=== PATIENT | female | born 1955 | race Caucasian/White ===

== ENCOUNTER 2025-02-12 09:21 | Inpatient (IN) | payer MEDICARE, SELFPAY ==
--- NOTE | 2025-01-21 16:02 | CM ---
Demographics: Lives alone
Living situation: Lives alone
Support Person Post Operatively: None
History of
VN: No
SNF: No
Outpatient: None
Has patient purchased required equipment: No
PCP: Active
Pharmacy: N/A
Post Operative Discharge Plan: Patient stated that she has no support post operatively and will not be able to get a ride to her outpatient PT appointments. Patient stated that she is requesting SNF. Patient stated her preferences are [facility]
and [facility].
[2025-01-24 14:22] VITALS: BMI 26.0
[2025-01-24 14:35] LABS: Hematocrit 30.9 % (37.0-47.0); Hemoglobin 10.3 g/dL (12.0-16.0); Mean Corp Hgb Conc. 33.3 g/dL (33.0-37.0); Mean Corpuscular Volume 88.3 fL (81.0-99.0); Platelet Count 201 10^3/uL (130-400); Red Cell Dist. Width 14.0 % (11.5-14.5)
[2025-01-24 14:51] VITALS: BMI 26.0
[2025-01-24 15:17] LABS: Reticulocyte Count 1.4 % (0.4-2.8)
[2025-01-24 15:26] LABS: ALT (SGPT) 15 U/L (0-35); AST (SGOT) 23 U/L (14-36); Albumin 4.2 g/dl (3.5-5.0); Alkaline Phosphatase 108 U/L (38-126); Blood Urea Nitrogen 39 mg/dl (7-17); Calcium 9.3 mg/dl (8.4-10.2); Carbon Dioxide 28 mmol/L (22-30); Chloride 104 mmol/L (98-107); Estimated Creatinine Clearance 53 ml/min; Glucose 236 mg/dl (70-99); Iron 65 ug/dl (37-170); Potassium 4.8 mmol/L (3.5-5.1); Sodium 138 mmol/L (135-145); Total Protein 7.2 g/dl (6.3-8.2); eGFR > 60.00
[2025-01-24 15:35] LABS: Total Iron Binding Capacity 291 ug/dl (265-497)
[2025-01-24 16:54] LABS: Ferritin 53.6 ng/ml (11.1-264.0)
[2025-01-24 17:25] LABS: Folate > 20.0 ng/ml (2.76-20); Vitamin B12 572 pg/ml (239-931)
[2025-01-25 08:52] LABS: Glycohemoglobin (HgbA1c) 7.7 % (4.0-5.6)
[2025-02-12] VITALS (12 sets, daily range): BP systolic 90–152; BP diastolic 42–67; PULSE 76; O2SAT 99; BMI 27.4
[2025-02-12 09:48] LABS: Glucose - Point of Care 219 mg/dl (70-99)
[2025-02-12] MEDS: CELEBREX 200 MG PO (09:57)
[2025-02-12] MEDS: NORMOSOL-R/PLASMALYTE-A 1000 IV ×2 (09:57→15:14)
--- NOTE | 2025-02-12 10:10 | W.PN.ORTHO ---
Today's Communication / Plan
-
d/c when stable
Assessment
.
Dressing:
Clean, dry and intact.
Assessment:
Type 2IDDM-insulin pump
Ambulatory dysfunction-Fall precautions
Pain control-Ultram
Plan
.
Surgery / Date: R JORGE Dr. Lee 02/12/25
DVT Prophylaxis: Aspirin
Activity:
Out of bed.
PT/OT
Vital Signs and Labs
.
Vital Signs and Labs:
Lab Results
01/24/25 12:38
01/24/25 12:38
Temp Pulse Resp BP Pulse Ox
97.8 F 81 16 152/67 100
02/12/25 09:49 02/12/25 09:49 02/12/25 09:49 02/12/25 09:49 02/12/25 09:49
[2025-02-12 11:39] LABS: Glucose - Point of Care 146 mg/dl (70-99)
[2025-02-12] MEDS: TYLENOL PO (12:00)
[2025-02-12 12:41] LABS: Glucose - Point of Care 142 mg/dl (70-99)
[2025-02-12 14:10] LABS: Glucose - Point of Care 128 mg/dl (70-99)
--- NOTE | 2025-02-12 15:43 | CM ---
CM reviewed medical records. Plan for discharge to SNF. CM sent referrals via [facility] to [facility] and [facility]. CM will await admission feedback.
--- NOTE | 2025-02-12 16:05 | CM ---
Addendum entered by Vicki Juarez RN 02/14/25 08:42:
Authorization for [facility]
5 Days
NRD 02/18
[id number]
Fax review to [phone]
Addendum entered by Vicki Juarez RN 02/13/25 14:51:
Pending authorization
Reference Number: [id number]
Addendum entered by Vicki Juarez RN 02/13/25 11:15:
Patient is agreeable to [facility]. CM is awaiting final acceptance. Authorization will be pending.
PLAN: [facility] when authorization is approved.
Addendum entered by Vicki Juarez RN 02/13/25 07:49:
CM left message for admission coordinator at [facility].
Original Note:
CM met with patient in room. Patient confirmed choices for SNF. CM updated on placement process.
[2025-02-12] MEDS: TYLENOL 650 MG PO ×3 (16:06→23:14)
--- NOTE | 2025-02-12 16:54 | OR.RPT ---
Operative Report
Operative Report
Orthopaedic Surgery Operative Note
DATE OF OPERATION: 02/12/2025
PREOPERATIVE DIAGNOSES: Osteoarthritis, right hip
POSTOPERATIVE DIAGNOSES: Same
OPERATION PERFORMED: Right total hip arthroplasty.
SURGEON: Eben Lee MD
REMOTE ENCODING OPERATIONS SUPERVISOR: Dann COOPER who assisted with patient positioning and retraction
ANESTHESIA: Spinal
COMPLICATIONS: None.
ESTIMATED BLOOD LOSS: 30 mL.
DRAINS: None
SPECIMEN: None
FINDINGS: Advanced articular cartilage wear on the femoral head and acetabulum.
IMPLANTS:
Biomet G7 Acetabular Shell, cluster hole, size 48
Biomet G7 Highly Crosslinked PE Liner, neutral
Sumit M/L Taper femoral stem, size 4 with reduced neck length and extended offset
Biolox Ceramic Head, size 32mm -3.5
INDICATIONS: The patient presented to my office with debilitating right hip pain due to osteoarthritis. We reviewed the natural history of this problem, as well as the risks, benefits, and alternatives of various treatment options. The patient
exhausted all nonoperative treatment options and wished to proceed with hip replacement surgery. The patient understood the risks which included, but were not limited to, bleeding, infection, failure to relieve pain, more pain than preop, damage to
blood vessels and nerves, need for reoperation, mechanical failure of the implants, wound healing problems, stiffness, instability, blood clot, pulmonary embolism, myocardial infarction, pneumonia, arrhythmia, CVA, and . The patient accepted
these risks and wished to proceed. All questions were answered, and informed consent was obtained.
PROCEDURE IN DETAIL: The patient was identified in the preoperative holding area. The right hip was identified as the operative site. The patient was taken in the operating room and transferred to the operative table. Spinal/General anesthesia was
performed. IV antibiotics and tranexamic acid were administered. The patient was placed in the lateral position with Stulberg hip positioners. Axillary roll was placed. The down leg was well padded. All bony prominences were well padded. The
operative limb was prepped and draped in the usual sterile fashion.
Time out was performed. A posterolateral approach to the hip was used. The skin incision was centered over the greater trochanter. This was taken down sharply through subcutaneous tissues. Meticulous hemostasis was achieved throughout the case with
electrocautery. We split the fascia jeremi in line with skin incision. I split the gluteus yogesh bluntly. We cauterized all crossing vessels as we split it. I palpated the sciatic nerve and made sure it was well posterior in the operative field. It
was protected throughout the case.
I performed a partial bursectomy to identify the short external rotators. The gluteus medius and minimus were identified and retracted anteriorly. I incised the piriformis tendon and conjoint tendon at their insertions. These were tagged for later
repair. I then performed a trapezoidal capsulotomy. The edges were tagged for later repair. I referenced the cut edge of the capsular flap to 2 fixed points on the greater trochanter for assistance with recreation of limb length and offset. I then
dislocated the hip posteriorly. I performed a femoral neck osteotomy approximately 5 mm above the lesser trochanter, as per preoperative templating. The femoral head measured 41 mm in outer diameter. The distance between neck cut and the center of
femoral head was 35mm. I placed a curve hohmann retractor over the anterior lip of the acetabulum between the labrum and the anterior hip capsule. A second retractor was placed inferiorly just distal to the transverse acetabular ligament.
Circumferential view of the acetabulum was achieved. I incised the labrum and pulvinar with electrocautery. I started with a 41 mm reamer and reamed down to the medial wall. I then sequentially reamed up to a 47mm reamer. This gave a nice bed of
bleeding bone with excellent column support anteriorly and posteriorly. I impacted the acetabular shell in approximately 40 degrees of abduction and 20 degrees of anteversion. I matched the anteversion of the transverse acetabular ligament. I also
made sure that the anterior rim of the socket was not proud of the anterior wall to minimize the chance of iliopsoas tendinitis. I confirmed the cup was well-seated. I then impacted a neutral liner and confirmed it was well seated with the locking
mechanism.
On the femoral side, I use a box osteotome to open the proximal starting point. I found the canal with a Charnley awl and a lateralizing reamer. I then used the Sumit M/L taper broaches sequentially to prepare the femoral canal. The femoral canal
was very tight for the smallest broach, size 4. The reamer was used to help open the diaphysis. The size [address] and came to a stop at the desired level and had excellent axial and rotational stability. We trialed with a trial ball
head. The hip was taken through a complete range of motion. It was noted to be stable in extension without impingement. It was stable in the position of sleep and in flexion with internal rotation. The limb length and offset were checked compared to
the capsular flap and was appropriate. The measured length between the neck cut and center of the trial femoral head was 37.5mm.
I removed the trials. I impacted the femoral implant to match the miami version. It had excellent axial and rotational stability. Trial ball head was placed, and I reduced the hip and took the hip through range of motion. There was no impingement
in external rotation and extension. Position of sleep was stable. At 90 degrees of flexion and slight adduction, the hip could be internally rotated to 90 degrees with no subluxation. I palpated the sciatic nerve, which was tension free and
unharmed. Based on our capsular flap measurement, we had restored the offset and leg length. The trial ball head was removed, and the final ball head was impacted onto a clean and dry Liao taper. The hip was reduced.
A dilute betadine soak was performed for approximately 3 minutes, and then the hip was copiously irrigated. I repaired the capsule, piraformis, and conjoint tendon with #2 Ethibond to drill holes in the greater trochanter. Local anesthetic was
injected. The fascia jeremi was closed with #1 PDS in running fashion. The subcutaneous tissues were closed with 2-0 PDS in running fashion. The skin was reapproximated with 3-0 Monocryl subcuticular suture. I placed a Liquiband XL dressing followed
by a Mepilex Ag dressing. The patient awoke from anesthesia without difficulty. Sponge and instrument counts were correct x2 at the end of the case.
I was present and participated in the entire procedure. The patient was sent to the recovery room in stable condition.
Rupert Lee MD
[2025-02-12] MEDS: ASPIRIN 325 MG PO (17:44)
[2025-02-12 17:47] LABS: Glucose - Point of Care 232 mg/dl (70-99)
[2025-02-12] MEDS: TORADOL 15 MG IV (18:31)
[2025-02-12] MEDS: PT'S OWN INSULIN PUMP - HumaLOG 1.5 UNIT SC (18:33)
[2025-02-12] MEDS: ULTRAM 50 MG PO (19:50)
[2025-02-12] MEDS: BACTROBAN 2% OINTMENT 1 APPLIC NASAL (19:50)
[2025-02-12] MEDS: COLACE 100 MG PO (19:50)
[2025-02-12] MEDS: ANCEF 5 IV (19:50)
[2025-02-12] MEDS: SENOKOT 17.2 MG PO (19:50)
[2025-02-12] MEDS: LYRICA 150 MG PO (20:15)
[2025-02-12] MEDS: PT'S OWN INSULIN PUMP - HumaLOG 0.4 UNIT SC (21:21)
[2025-02-12 21:23] LABS: Glucose - Point of Care 162 mg/dl (70-99)
[2025-02-12] MEDS: PEPCID 40 MG PO (21:30)
[2025-02-13] VITALS (8 sets, daily range): BP systolic 124–138; BP diastolic 50–64; PULSE 66; O2SAT 99
[2025-02-13 02:06] LABS: Glucose - Point of Care 53 mg/dl (70-99)
[2025-02-13] MEDS: ANCEF 5 IV (02:11)
[2025-02-13 02:28] LABS: Glucose - Point of Care 66 mg/dl (70-99)
[2025-02-13 02:48] LABS: Glucose - Point of Care 90 mg/dl (70-99)
[2025-02-13] MEDS: TYLENOL 650 MG PO ×5 (04:45→19:30)
[2025-02-13] MEDS: TORADOL 15 MG IV ×2 (05:10→17:35)
[2025-02-13] MEDS: SYNTHROID 75 MCG PO (05:14)
[2025-02-13 08:15] LABS: Glucose - Point of Care 143 mg/dl (70-99)
[2025-02-13] MEDS: PT'S OWN INSULIN PUMP - HumaLOG 0.2 UNIT SC (08:35)
[2025-02-13] MEDS: COLACE 100 MG PO ×2 (09:32→19:30)
[2025-02-13] MEDS: ASPIRIN 325 MG PO (09:32)
[2025-02-13] MEDS: LYRICA 150 MG PO ×2 (09:32→19:30)
[2025-02-13] MEDS: BACTROBAN 2% OINTMENT 1 APPLIC NASAL ×2 (09:32→19:30)
[2025-02-13] MEDS: CELEBREX 200 MG PO (09:32)
[2025-02-13] MEDS: CRESTOR 20 MG PO (09:32)
[2025-02-13] MEDS: SENOKOT 17.2 MG PO ×2 (09:33→19:30)
[2025-02-13] MEDS: ULTRAM 50 MG PO ×2 (09:33→19:30)
[2025-02-13] MEDS: VALTREX 500 MG PO (09:33)
--- NOTE | 2025-02-13 11:06 | W.PN.ORTHO ---
Today's Communication / Plan
-
d/c
Assessment
.
Distal Motor Intact: Yes
Dressing:
Clean, dry and intact.
Assessment:
Type 2IDDM-insulin pump-sugars stable
Ambulatory dysfunction-Fall precautions
Pain control-Ultram--pain controlled
Plan
.
Surgery / Date: R JORGE Lee 02/12/25
DVT Prophylaxis: Aspirin
Activity:
Out of bed.
PT/OT
Discharge Plan: SNF
Subjective
.
.:
Patient resting comfortably.
Vital Signs and Labs
.
Vital Signs and Labs:
Lab Results
01/24/25 12:38
01/24/25 12:38
Temp Pulse Resp BP Pulse Ox
97.6 F 70 16 133/64 96
02/13/25 07:57 02/13/25 09:33 02/13/25 07:57 02/13/25 09:33 02/13/25 07:57
Non-invasive Hgb result: 10.2
Physical Exam
-
HEENT: No pallor, cyanosis, or jaundice. Throat clear.
NECK: Supple. No JVD.
RESPIRATORY: Lungs clear to auscultation.
CVS: S1, S2 normal. RRR.� No murmur, rub or gallop.
ABDOMEN: Soft, non-tender. No distension. BS+/normal.
EXTREMITIES: strength equal, no calf pain with palpation
REAL ESTATE ASSOCIATE ATTORNEY: AOx3. No focal deficits. lip cutter grossly intact
[2025-02-13 12:19] LABS: Glucose - Point of Care 135 mg/dl (70-99)
[2025-02-13] MEDS: PT'S OWN INSULIN PUMP - HumaLOG 0.1 UNIT SC (12:25)
[2025-02-13 15:16] LABS: Glucose - Point of Care 155 mg/dl (70-99)
[2025-02-13] MEDS: MAALOX 30 ML PO (16:04)
--- NOTE | 2025-02-13 16:06 | PTCARENOTE ---
Addendum entered by Atiya Luz RN 02/13/25 18:06:
pt reports adequate relief from Maalox. feels much improved and ordering dinner at this time.
Original Note:
pt out of bed sitting in chair, @1510 c/o feeling slight nausea and feeling off. VSS and accu check completed. pt verbalized some frustration with not going to SNF today. emotional support provided. pt assisted back to bed. @1600, pt stated she
felt lunch wasn't agreeing with her and stomach was feeling some nausea but mostly indigestion. Maalox provided per AUG @ 1604. care ongoing.
[2025-02-13] MEDS: FLUSH (NSS) 2 FLUSH IV (17:37)
[2025-02-13 17:47] LABS: Glucose - Point of Care 100 mg/dl (70-99)
[2025-02-13] MEDS: PT'S OWN INSULIN PUMP - HumaLOG SC (17:59)
[2025-02-13 21:34] LABS: Glucose - Point of Care 175 mg/dl (70-99)
[2025-02-13] MEDS: PT'S OWN INSULIN PUMP - HumaLOG 0.4 UNIT SC (22:30)
[2025-02-13] MEDS: PEPCID 40 MG PO (22:30)
[2025-02-14] MEDS: TYLENOL 650 MG PO ×3 (00:30→09:52)
[2025-02-14 03:06] VITALS: BP 133/57
[2025-02-14] MEDS: SYNTHROID 75 MCG PO (05:22)
[2025-02-14] MEDS: TORADOL 15 MG IV (05:24)
[2025-02-14 07:35] VITALS: BP 130/60
[2025-02-14 08:34] LABS: Glucose - Point of Care 259 mg/dl (70-99)
[2025-02-14] MEDS: PT'S OWN INSULIN PUMP - HumaLOG 1.5 UNIT SC (09:00)
--- NOTE | 2025-02-14 09:45 | PTCARENOTE ---
Patient OOB with assist x1 to bathroom. Patient states, 'I am not feeling right. I feel shaky and nauseous. I think it is all the medications that I have been taking.' Patient requesting Maalox. Med review completed with patient. Patient is refusing
Ultram and Celebrex at this time. Patient has no c/o pain at present and is agreeable to taking Tylenol and Lyrica.
[2025-02-14] MEDS: MAALOX 30 ML PO (09:51)
[2025-02-14] MEDS: ULTRAM PO (09:53)
[2025-02-14] MEDS: SENOKOT 17.2 MG PO (09:53)
[2025-02-14] MEDS: ASPIRIN 325 MG PO (09:53)
[2025-02-14] MEDS: COLACE 100 MG PO (09:53)
[2025-02-14] MEDS: CRESTOR 20 MG PO (10:02)
[2025-02-14] MEDS: LYRICA 150 MG PO (10:02)
[2025-02-14] MEDS: VALTREX 500 MG PO (10:02)
[2025-02-14] MEDS: CELEBREX PO (10:03)
--- NOTE | 2025-02-14 10:16 | CM ---
Patient is medically ready for discharge. Plan to have [facility] provide transportation as per admission director. Patient will be picked up at 11:30. Cm updated RN and patient .
[facility]
Report
[phone]
[2025-02-14] MEDS: TYLENOL PO (11:47)
[2025-02-14] MEDS: PT'S OWN INSULIN PUMP - HumaLOG SC (11:48)
[2025-02-14 12:43] VITALS: BP 148/55
[2025-02-14 13:46] LABS: Glucose - Point of Care 200 mg/dl (70-99)
== END 2025-02-14 14:13 | DRG 470 ==
LOC: 2 SOUTH 09:21
PROVIDERS: ADMITTING PHYSICIAN Orthopaedic Surgery; PRIMARYCARE PHYSICIAN Registered Nurse; REFERRING PHYSICIAN Internal Medicine Cardiovascular Disease
PROC: 0SR904Z Replacement of Right Hip Joint with Ceramic on Polyethylene Synthetic Substitute, Open Approach (ICD-10-PCS; 2025-02-12)
DX: M16.11 Unilateral primary osteoarthritis, right hip (principal); I10 Essential (primary) hypertension; E78.00 Pure hypercholesterolemia, unspecified; I25.10 Atherosclerotic heart disease of native coronary artery without angina pectoris; E10.319 Type 1 diabetes mellitus with unspecified diabetic retinopathy without macular edema; E10.51 Type 1 diabetes mellitus with diabetic peripheral angiopathy without gangrene; I27.20 Pulmonary hypertension, unspecified; E10.40 Type 1 diabetes mellitus with diabetic neuropathy, unspecified; E04.2 Nontoxic multinodular goiter; E89.0 Postprocedural hypothyroidism; L30.9 Dermatitis, unspecified; D50.9 Iron deficiency anemia, unspecified; F43.10 Post-traumatic stress disorder, unspecified; L80 Vitiligo; F41.9 Anxiety disorder, unspecified; Z60.2 Problems related to living alone; Z96.653 Presence of artificial knee joint, bilateral; Z96.41 Presence of insulin pump (external) (internal); Z86.0100 Personal history of colon polyps, unspecified; Z87.891 Personal history of nicotine dependence; Z79.82 Long term (current) use of aspirin; Z79.890 Hormone replacement therapy; Z79.4 Long term (current) use of insulin; Z98.42 Cataract extraction status, left eye; Z98.41 Cataract extraction status, right eye
CPT/HCPCS: 36415; 73502; 80053; 82607; 82728; 82746; 82962; 83036; 83540; 83550; 85027; 85045; 86850; 86900; 86901; 87070; 97110; 97116; 97162; 97167; 97530; 97535; C1776

== ENCOUNTER 2025-02-14 23:34 | Inpatient (IN) | payer MEDICARE, SELFPAY ==
[2025-02-14 19:43] VITALS: BP 137/52
[2025-02-14 19:46] VITALS: BP 137/52
[2025-02-14 19:50] VITALS: BMI 28.7
[2025-02-14 20:03] VITALS: BP 143/54
[2025-02-14 21:00] LABS: Hematocrit 30.2 % (37.0-47.0); Hemoglobin 10.3 g/dL (12.0-16.0); Mean Corp Hgb Conc. 34.1 g/dL (33.0-37.0); Mean Corpuscular Volume 86.8 fL (81.0-99.0); Nucleated Red Blood Cells % 0 %; Platelet Count 189 10^3/uL (130-400); Red Cell Dist. Width 14.0 % (11.5-14.5)
[2025-02-14 21:09] LABS: INR 0.86; PT 12.0 Sec (11.4-14.6)
[2025-02-14 21:10] LABS: APTT 22.1 Sec (23.4-35.0)
[2025-02-14] MEDS: TORADOL 15 MG IV (21:20)
[2025-02-14 21:25] LABS: Blood Urea Nitrogen 26 mg/dl (7-17); Calcium 9.1 mg/dl (8.4-10.2); Carbon Dioxide 26 mmol/L (22-30); Chloride 104 mmol/L (98-107); Estimated Creatinine Clearance 71 ml/min; Glucose 96 mg/dl (70-99); Sodium 135 mmol/L (135-145); eGFR > 60.00
--- NOTE | 2025-02-14 22:05 | ED.GENMED ---
History of Present Illness
General
Chief Complaint: Fall
Source: patient
Exam Limitations: none
Time Seen by Provider: 02/14/25 20:29
History of Present Illness
History of Present Illness:
See MDM
Past History
Past History
ED Past Medical History: HTN
ED Past Surgical History: Orthopedic
Social History
Tobacco: Non-smoker
Alcohol: None
Phy Exam
Physical Exam
Physical Exam:
See MDM
Course
Orders/Labs/Results
Orders:
Orders
02/14/25 19:59
CR Hip - RT w/wo Pel 2-3 Vw* Urgent
Comment:
Reason For Exam: fall
Include a pelvis x-ray?: Yes
02/14/25 20:40
CT Head W/o Iv Contrast Urgent
Comment:
Reason For Exam: fall, head injury
02/14/25 20:42
Ketorolac [Toradol] 15 mg IV NOW STA
02/14/25 20:50
Femur, Right 2 View [CR Femur - Right Min 2 Vw] Urgent
Comment:
Reason For Exam: fall, thigh pain
02/14/25 20:51
Basic Metabolic Panel Urgent
Complete Blood Count/With Diff Urgent
PTT Urgent
Prothrombin Time Urgent
02/14/25 20:53
CT Pelvis W/o Iv Contrast Urgent
Comment:
Reason For Exam: fall, R hip pain
02/14/25 21:05
Consult Orthopedic [ORTHOPEDIC CONSULT] Routine
Consulting Provider: Eben Lee
Was physician already notified: Yes
02/14/25 21:37
Type+Screen Urgent
Ydfqi-Jwgq-Ghtwvgv Urgent
Potassium Urgent
Abnormal Lab Results
02/14/25
20:51
RBC 3.48 L 10^6/uL
(4.20-5.40)
Hgb 10.3 L g/dL
(12.0-16.0)
Hct 30.2 L %
(37.0-47.0)
Absolute Lymphs (auto) 0.9 L 10^3/uL
(1.2-3.4)
Immature Gran % 0.6 H %
(0-0.5)
Lymphocytes % 16.9 L %
(20.5-51.1)
Monocytes % 9.8 H %
(1.7-9.3)
APTT 22.1 L Sec
(23.4-35.0)
BUN 26 H mg/dl
(7-17)
02/14/25 20:51
Vital Signs
Initial and Last Documented VS:
Initial Vital Signs
Temp Pulse Resp BP Pulse Ox
98.0 F 94 14 137/52 98
02/14/25 19:43 02/14/25 19:43 02/14/25 19:43 02/14/25 19:43 02/14/25 19:43
Last Documented Vital Signs
Temp Pulse Resp BP Pulse Ox
98.0 F 92 10 143/54 100
02/14/25 19:43 02/14/25 21:45 02/14/25 21:45 02/14/25 20:03 02/14/25 21:30
MDM/Problems Addressed
Differential Diagnosis Includes:
Note:
CHIEF COMPLAINT(S)
Fall with suspected hip injury.
HISTORY OF PRESENT ILLNESS
The patient is a 69-year-old female with a history of hip surgery, presenting after a fall. She reports the fall occurred while transferring from a chair at a rehabilitation facility, which she had been at for approximately an hour. The patient
describes the fall happened as she attempted to retrieve a folder from a bag on the chair. During this maneuver, she lost balance and fell. The concern is primarily around potential injury to the prosthetic hip. Upon examination, there is a
suspicion of a fracture around the prosthetic hip. The patient denies neck pain and does not currently require pain medication as per her statement, although Toradol was offered for relief. The patient also expressed frustration over the setback in
her rehabilitation progress.
PAST MEDICAL AND SURIGICAL HISTORY
History of recent hip surgery.
PHYSICAL EXAM
General: Alert, no acute distress.
Skin: Warm, dry.
Head: Normocephalic, atraumatic
Neck: Appears supple, trachea midline.
Eyes, Ears, Nose, Mouth, and Throat: Oral mucosa moist.
Cardiovascular: No signs of cyanosis
Respiratory: Respirations are non-labored.
Abdomen: Non-distended
Musculoskeletal: Mildly shortened and externally rotated right leg. Distal extremity otherwise neurovascular intact. Pain localized to right hip palpation. Pelvis stable compression
Neurological: No focal neurological deficit observed.
Psychiatric: Cooperative, appropriate mood and affect.
PLAN
1. Consult orthopedic team regarding the management of suspected fracture around the prosthetic hip.
2. Obtain a CT scan of the head to rule out intracranial bleeding.
3. Administer IV Toradol for pain management as needed.
DIFFERENTIAL DIAGNOSIS
The Differential Diagnosis includes, in no particular order and is not limited to:
1. Periprosthetic hip fracture
2. Hip dislocation
3. Soft tissue injury
4. Intracranial hemorrhage
5. Hematoma formation
6. New prosthetic wear or failure
7. Simple fall with no fracture
8. Bruised soft tissue around the hip
9. Muscular strain
10. Stroke or transient ischemic attack (related to sudden loss of balance)
Disposition:
SUMMARY OF ENCOUNTER
The patient, a 69-year-old female with a history of hip surgery, presented after experiencing a fall with suspected injury around her prosthetic hip. An x-ray indicated a concern for a periprosthetic fracture. The patients pain is currently
well-controlled. After an initial evaluation, I discussed the case with the orthopedic team, who recommended planning to take the patient to the operating room the next day for further management.
DISPOSITION
Admit
MANAGEMENT OF THE PATIENTS CARE WAS DISCUSSED WITH
The orthopedic team was consulted regarding the management of the suspected periprosthetic fracture and has planned for surgery. Additionally, the hospitalist team was informed to keep the patient NPO (nothing by mouth) after midnight in preparation
for surgery.
PLAN
Admit the patient overnight for further orthopedic evaluation and surgery planned for tomorrow. Ensure the patient remains NPO after midnight.
INDEPENDENT REVIEW OF LABS AND INTERPRETATION OF TESTS
My independent interpretation of the x-ray indicates a concern for periprosthetic fracture.
MEDICATION RECONCILIATION
Pain management is effectively controlled with current medications, specifics not provided.
MEDICAL DECISION MAKING
- Number and Complexity of Problems Addressed: Chronic conditions affecting care include recent hip surgery. Differential diagnosis includes periprosthetic hip fracture, hip dislocation, soft tissue injury, intracranial hemorrhage, hematoma
formation, new prosthetic wear or failure, simple fall with no fracture, bruised soft tissue around the hip, muscular strain, stroke or transient ischemic attack.
- Data:
- Category 1: My independent x-ray interpretation indicates a concern for a periprosthetic fracture.
- Category 3: Discussion of management with the orthopedic team and the hospitalist regarding surgical planning and preoperative preparation.
DIAGNOSIS
- Suspected periprosthetic fracture (M97.02XA)
*Pulse Oximetry
SaO2: 100
Oxygen Mode of Delivery: Room air
Patient hypoxic: no
*Critical Care Note
Total Time (30-74mins, 75-104mins- exclusive of procedures): Not Applicable
ED Attending Note
-
Portions of this chart may have been created with voice recognition software.� Occasional wrong word or��sound alike� substitutions may have occurred due to the inherent limitations of voice recognition software.
Discharge Plan
Departure
Patient Disposition: Admit
Date of Disposition: 02/14/25
Time of Disposition: 22:07
Admit to: Med/Surg
Presentation/result/management discussed w/ accepting MD/DO: Hospitalist
Discharge Problem:
Scarlett-prosthetic femoral shaft fracture
Prescriptions:
No Action
amlodipine 5 mg Tablet
5 mg PO DAILY
valacyclovir 500 mg Tablet
500 mg PO DAILY
levothyroxine 75 mcg Tablet
75 mcg PO MOTUWETHFR
ascorbic acid (vitamin C) [Vitamin C] 500 mg Tablet
500 mg PO DAILY
insulin lispro 100 unit/mL Solution
0 unit SC Q1H
Patient Comments:
varying basal rate , continuous pump
Rx Instructions:
self admin'd 1.2 units at 0947
coenzyme Q10 [CoQ-10] 100 mg Capsule
100 mg PO DAILY
rosuvastatin 20 mg Tablet
20 mg PO DAILY
pregabalin 100 mg Capsule
100 mg PO BID
hydrochlorothiazide 12.5 mg Tablet
12.5 mg PO DAILY
cholecalciferol (vitamin D3) [Vitamin D3] 125 mcg (5,000 unit) Tablet
125 mcg PO SA
magnesium citrate 34 mg Tablet,Chewable
70 mg PO DAILY
Beet Root Gummy
500 mg PO DAILY
Nutrafol Womens
1 dose PO DAILY
ferrous gluconate 324 mg (38 mg iron) Tablet
324 mg PO DAILY
mupirocin 2 % ointment
1 applic intranasal BID Qty: 1 0RF
Patient Comments:
BID times 3 days, last dose 8/20 am
aspirin 325 mg tablet
325 mg PO DAILY Qty: 1 0RF
Rx Instructions:
Take with food
cefadroxil 500 mg capsule
500 mg PO BID Qty: 14 0RF
Rx Instructions:
*Take w/ food
*Take w/ probiotic
*POST-OP USE
docusate sodium [Colace] 100 mg capsule
100 mg PO BID Qty: 1 0RF
famotidine 20 mg tablet
20 mg PO HS Qty: 30 0RF
Rx Instructions:
post-op
Saccharomyces boulardii [Florastor] 250 mg capsule
250 mg PO BID Qty: 1 0RF
tramadol 50 mg tablet
50 mg PO Q6H PRN (Reason: 1 tab moderate pain, 2 if severe) Qty: 30 0RF
Rx Instructions:
ongoing therapy
ondansetron [ondansetron] 4 mg tablet,disintegrating
4 mg PO Q6H PRN (Reason: n/v) Qty: 20 0RF
Rx Instructions:
take 1/2h b/f pain med if recurrent nausea
allow to dissolve in mouth w/o water
magnesium hydroxide [Milk of Magnesia] 400 mg/5 mL suspension
30 ml PO HS PRN (Reason: constipation) Qty: 1 0RF
Rx Instructions:
CONTINUE colace W/senokot-if no bowel movement 1 day POST-OP -add milk of mag
sennosides [Senokot] 8.6 mg tablet
17.2 mg PO BID Qty: 2 0RF
acetaminophen 500 mg Tablet
1,000 mg PO QID Qty: 0 0RF
Referrals:
Shalini Pizarro CRNP [Family Provider, Family Practice]
Interventions
Interventions:
*Risk Screen - Suicide Last Done: 02/14/25 19:50
*General Assessment Last Done: 02/14/25 19:50
*Neglect/Abuse Screening Last Done: 02/14/25 19:50
*ED- Fall Risk Assessment Last Done: 02/14/25 19:50
*ED COVID-19 Vaccine History Last Done: 02/14/25 19:50
ED-Musculoskeletal Assessment Last Done: 02/14/25 19:55
ED- Neurological Assessment Last Done: 02/14/25 19:55
ED-Skin Assessment Last Done: 02/14/25 19:55
Discharge Date and Time
Print Language: MAORI
--- NOTE | 2025-02-14 22:08 | HPS.HSE ---
Family Physician
-
Family Physician: Shalini Pizarro
Chief Complaint
-
right hip pain
History of Present Illness
Patient is a 69-year-old female with past medical history significant for hypertension, hypercholesterolemia, DM - I, retinopathy, neuropathy, Pedro's disease, anemia and spinal stenosis who presented to [facility] for evaluation of right hip pain.
Patient with right hip replacement and discharged earlier today for rehab. She was at rehab for short period of time when he attempted to get up, walk with walker and reach for bag. When attempting to lift bag patient reports loosing her balance
with only one hand on the walker and falling. She reports hitting head on fall. Denies any other concerns at thist time.
Medical History
Past Medical History
Past Medical History: Reports Other
Additional Past Medical History:
hypertension
hypercholesterolemia
CAD
DM - I
retinopathy
neuropathy
Pedro's disease
anemia
spinal stenosis
herpes simplex virus
Past Surgical History: Reports Other
Additional Past Surgical History:
right total hip replacement
right TKA
left TKA
b/l cataracts
b/l carpal tunnel release
partial thyroidectomy
tenosynovitis
bilateral breast nodule excision
Social History
Tobacco: Non-smoker
Living: Alone
Family History
Family History: Not pertinent
Allergies / Home Medications
Allergies reflects when Allergies were last updated in [employer].
Home Medications with original date entered in [employer]
Allergy/Medication List:
Allergies
Allergy/AdvReac Type Severity Reaction Status Date / Time
codeine Allergy dizziness Verified 02/12/25 09:38
diphenhydramine (From Allergy Hives Verified 02/12/25 09:38
Benadryl)
gabapentin Allergy Itching Verified 02/12/25 09:38
insulin isophane (NPH) (From Allergy welts legs Verified 02/12/25 09:38
Novolin 70/30 U-100 Insulin)
insulin regular (From Allergy welts legs Verified 02/12/25 09:38
Novolin 70/30 U-100 Insulin)
isosorbide Allergy dizziness Verified 02/12/25 09:38
meloxicam Allergy diarrhea Verified 02/12/25 09:38
amlodipine AdvReac leg Verified 02/12/25 09:38
swelling
Home Medications
Beet Root Gummy 500 mg PO DAILY 01/23/25
Held on 02/12/25. Instructions: Resume on 02/20/25.
Nutrafol Womens 1 dose PO DAILY 01/23/25
Held on 02/12/25. Instructions: Resume on 02/20/25.
amlodipine 5 mg tablet 5 mg PO DAILY 01/23/25
ascorbic acid (vitamin C) 500 mg tablet (Vitamin C) 500 mg PO DAILY 01/23/25
cholecalciferol (vitamin D3) 125 mcg (5,000 unit) tablet (Vitamin D3) 125 mcg PO SA 01/23/25
coenzyme Q10 100 mg capsule (CoQ-10) 100 mg PO DAILY 01/23/25
Held on 02/12/25. Instructions: Resume on 02/20/25.
ferrous gluconate 324 mg (38 mg iron) tablet 324 mg PO DAILY 01/23/25
hydrochlorothiazide 12.5 mg tablet 12.5 mg PO DAILY 01/23/25
insulin lispro 100 unit/mL subcutaneous solution 0 unit SC Q1H 01/23/25
levothyroxine 75 mcg tablet 75 mcg PO MOTUWETHFR 01/23/25
magnesium citrate 34 mg chewable tablet 70 mg PO DAILY 01/23/25
pregabalin 100 mg capsule 100 mg PO BID 01/23/25
rosuvastatin 20 mg tablet 20 mg PO DAILY 01/23/25
valacyclovir 500 mg tablet 500 mg PO DAILY 01/23/25
mupirocin 2 % topical ointment 1 applic intranasal BID #1 tube 01/24/25
Saccharomyces boulardii 250 mg capsule (Florastor) 250 mg PO BID #1 cap 02/12/25
cefadroxil 500 mg capsule 500 mg PO BID infection prevention #14 caps 02/12/25
docusate sodium 100 mg capsule (Colace) 100 mg PO BID stool softner #1 cap 02/12/25
famotidine 20 mg tablet 20 mg PO HS GI prophylaxis #30 tabs 02/12/25
magnesium hydroxide 400 mg/5 mL oral suspension (Milk of Magnesia) 30 ml PO HS PRN constipation #1 mL 02/12/25
ondansetron 4 mg disintegrating tablet 4 mg PO Q6H PRN n/v #20 tabs 02/12/25
sennosides 8.6 mg tablet (Senokot) 17.2 mg (2 x 8.6 mg) PO BID laxative #2 tabs 02/12/25
tramadol 50 mg tablet 50 mg PO Q6H PRN 1 tab moderate pain, 2 if severe #30 tabs 02/12/25
Review of Systems
-
History Source: Patient
Constitutional: Reports No Symptoms
EENT: Reports No Symptoms
Respiratory: Reports No Symptoms
Cardiac: Reports No Symptoms
Abdomen/GI: Reports No Symptoms
: Reports No Symptoms
Musculoskeletal: Reports Joint Pain (right hip discomfort )
Skin: Reports No Symptoms
Neurological: Reports No Symptoms
Endocrine: Reports No Symptoms
Hematologic/Lymphatic: Reports No Symptoms
Psych: Reports No Symptoms
Physical Exam
Vital Signs
Vital Signs
Temp Pulse Resp BP Pulse Ox
98.0 F 92 10 143/54 100
02/14/25 19:43 02/14/25 21:45 02/14/25 21:45 02/14/25 20:03 02/14/25 22:08
Physical Exam
General: Well Developed, Well Nourished, No Apparent Distress and Conversant
HEENT: NormoCephalic, Moist mucous membranes and Atraumatic
Respiratory: Clear
Cardiac: S1/S2 and Regular Rhythm; No Murmur, Rub or Gallop
Breast: Deferred by me
GI: Soft, Non Tender, Non Distended and Normal Bowel Sounds; No Organomegaly
Rectal: Deferred by Provider
Genito-urinary: Deferred by me
Musculoskeletal: No Clubbing, No Cyanosis and Other (externally rotated right leg)
Skin: Warm and IV/Catheter Site
Neuro: Awake, AO x 3 and Nonfocal/grossly intact
Hematologic/Lymphatic: No Lymphadenopathy
Psych: Calm
Laboratory Results
-
02/14/25 20:51
Laboratory Results
PT 12.0 Sec (11.4-14.6) 02/14/25 20:51
INR 0.86 02/14/25 20:51
APTT 22.1 Sec (23.4-35.0) L 02/14/25 20:51
Total Bilirubin Cancelled 02/14/25 20:51
AST Cancelled 02/14/25 20:51
ALT Cancelled 02/14/25 20:51
Alkaline Phosphatase Cancelled 02/14/25 20:51
Data Reviewed
-
CT Scan: Report Reviewed by me
Lab Data: Labs Reviewed by me
Impression/Plan
-
IMPRESSION/PLAN:
#shazia-prosthetic femoral shaft fracture
Pelvis CT: Right total hip arthroplasty with an oblique periprosthetic fracture through the proximal femur with anteromedial displacement of the fracture fragment. There is associated soft tissue swelling and
edema in the lateral soft tissues.
Right Femur x-ray: Redemonstration of the periprosthetic possible femur fracture. There is no evidence of distal femoral fracture.
Head TC: No acute intracranial abnormality noted.
Right femur CT: Unchanged alignment of the right total hip arthroplasty with a minimally displaced periprosthetic fracture through the medial proximal femur.
- Admit to med/surg
- Consult Ortho
- pain regimen
- plan for OR Monday
- continue cefadroxil
#hypertension
- continue amlodipine and hydrochlorothiazide
#hypercholesterolemia
- continue rosuvastatin
#DM - I
- continue own insulin pump
#herpes simplex virus
- continue valacyclovir
#Pedro's disease
s/p partial thyroidectomy
- continue levothyroxine
#neuropathy
- continue pregabalin
#retinopathy
#anemia
#spinal stenosis
Code status: full code
DVT prophylaxis: heparin sq
[2025-02-14 22:09] VITALS: BP 150/62
[2025-02-14 22:15] LABS: Albumin 3.7 g/dl (3.5-5.0); Alkaline Phosphatase 75 U/L (38-126); Total Protein 6.5 g/dl (6.3-8.2)
[2025-02-14 22:16] LABS: ALT (SGPT) 13 U/L (0-35); AST (SGOT) 47 U/L (14-36)
[2025-02-14 22:17] LABS: Potassium 4.4 mmol/L (3.5-5.1)
--- NOTE | 2025-02-14 22:57 | W.PN.UPDATE ---
Update Note
Progress Note Update
This is an addendum to H&P written by Ernestina Najera on 02/14/2025. �Patient seen and examined independently with [employer].
69-year-old female past medical history of osteoarthritis post right total hip arthroplasty, type 1 diabetes with insulin pump, diabetic neuropathy/retinopathy, hypertension, hypercholesteremia, CAD, peripheral vascular disease, mild to moderate
pulmonary hypertension, spinal stenosis, lichenoid dermatitis, iron deficiency anemia, vitiligo, PTSD, anxiety, herpes simplex, presenting with fall.
She recently had total right hip arthroplasty on 02/12 and now fell again.
Femur x-ray shows redemonstration of the periprosthetic possible femur fracture. �Pelvic CT shows right total hip arthroplasty with an oblique periprosthetic fracture through the proximal femur with anterior medial displacement of the fracture
fragment with associated soft tissue swelling and edema in the lateral soft tissues. �CT head shows no acute abnormality.
Patient with periprosthetic fracture on the same side of recent right hip arthroplasty performed on 02/12. �Pain control with tylenol, toradol and dilaudid PRN. �Orthopedics states that implant will not be ready until tomorrow afternoon and therefore
surgery planned for Monday. �Patient with low risk of postcardiac complications after surgery.
Continue insulin pump which can be discontinued at time of surgery and be restarted afterwards.�
[2025-02-14 23:00] VITALS: BP 159/55
[2025-02-14 23:41] LABS: Glucose - Point of Care 129 mg/dl (70-99)
[2025-02-15 00:35] VITALS: BP 145/70; BMI 29.3
[2025-02-15] MEDS: HEPARIN 5000 UNITS SC ×4 (01:00→23:03)
[2025-02-15] MEDS: TORADOL 10 MG IV ×2 (06:34→17:28)
[2025-02-15 07:30] VITALS: BP 166/69
[2025-02-15 08:17] LABS: Glucose - Point of Care 184 mg/dl (70-99)
[2025-02-15] MEDS: PT'S OWN INSULIN PUMP - HumaLOG 0.7 UNIT SC (08:51)
[2025-02-15] MEDS: VALTREX 500 MG PO (08:52)
[2025-02-15] MEDS: LYRICA 100 MG PO ×2 (08:53→21:37)
[2025-02-15] MEDS: CRESTOR 20 MG PO (08:53)
[2025-02-15] MEDS: ORETIC 12.5 MG PO (08:53)
[2025-02-15] MEDS: NORVASC 5 MG PO (08:54)
[2025-02-15] MEDS: ASPIR LOW (ENTERIC COATED) 81 MG PO (08:55)
--- NOTE | 2025-02-15 10:18 | W.PN.HOSP.TC ---
Today's Communication/Plan
-
continue with ISS
EKG in AM for pre-op
Assessment / Plan
Assessment / Plan
Physical Exam
General: Well Developed, Well Nourished, No Apparent Distress and Conversant
HEENT: Normocephalic, Moist mucous membranes and Atraumatic
Respiratory: Clear
Cardiac: S1/S2 and Regular Rhythm; No Murmur, Rub or Gallop
Breast: Deferred by me
GI: Soft, Non Tender, Non Distended and Normal Bowel Sounds;
Genito-urinary: No [place]
Musculoskeletal: No Clubbing, No Cyanosis and Other (externally rotated right leg)
Skin: Warm and IV/Catheter Site
Neuro: Awake, AO x 3 and Nonfocal/grossly intact
Psych: Calm
A/p:
#shazia-prosthetic femoral shaft fracture
Pelvis CT: Right total hip arthroplasty with an oblique periprosthetic fracture through the proximal femur with anteromedial displacement of the fracture fragment. There is associated soft tissue swelling and
edema in the lateral soft tissues.
Right Femur x-ray: Redemonstration of the periprosthetic possible femur fracture. There is no evidence of distal femoral fracture.
Head TC: No acute intracranial abnormality noted.
Right femur CT: Unchanged alignment of the right total hip arthroplasty with a minimally displaced periprosthetic fracture through the medial proximal femur.
- Admit to med/surg
- Consulted Ortho
- pain regimen
- plan for OR Monday
- continue cefadroxil
# Pre op evaluation
Patient denies chest pain or shortness of breath. Denies anginal symptoms. Had recent surgery without complications. No prohibitive factors for surgery, will get preop EKG.
#hypertension
- continue amlodipine and hydrochlorothiazide
#hypercholesterolemia
- continue rosuvastatin
#DM - I
She has her own insulin pump and uses it. I d/w pt, will do ISS but she should turn off the pump on day of surgery and we can continue with our sliding scale
#herpes simplex virus
- continue valacyclovir
#Pedro's disease
s/p partial thyroidectomy
- continue levothyroxine
#neuropathy
- continue pregabalin
#retinopathy
#anemia
#spinal stenosis
Code status: full code
DVT prophylaxis: heparin sq
Total time spent to see the patient, examine the patient, review data and lab results, discuss treatment plan with patient, nursing staff around 55 minutes
Anticipated Discharge: > 48 hours
Subjective/Interval History
-
Date of Service: February 15, 2025
No chest pain
No sob
No fever or chills
Objective Data
-
Vital Signs:
Vital Signs
Temp Pulse Resp BP Pulse Ox
98.0 F 91 18 166/69 95
02/15/25 07:30 02/15/25 08:54 02/15/25 07:30 02/15/25 08:54 02/15/25 07:30
I&O
02/14/25 02/15/25 02/16/25
06:59 06:59 06:59
Intake Total 120 / 120
Output Total 1200 / 1200
Balance -1080 / -1080
--- NOTE | 2025-02-15 10:20 | CON.ORTHO ---
Addendum entered and electronically signed by Eben Lee MD 02/15/25 16:12:
I evaluated the patient at bedside and reviewed the imaging. Agree with above note. 69F who sustained a trip and fall at [facility] one day ago. She was reaching to grab her purse and lost her balance and fell onto the right side. She was brought to the ED
and noted to have displaced proximal femur fracture with subsidence of femoral stem. I discussed treatment options with the patient and her sister at bedside. We discussed likelihood of nonunion/malunion and risk of shortened unstable hip with
nonoperative treatment. We discussed surgical treatment with proximal femur ORIF and revision of the femoral stem. We discussed touch down weight bearing 4-6 weeks post operatively in recovery. Shared decision was to proceed with surgery. Plan will
be for tomorrow AM due to awaiting appropriate implants. NPO at midnight.
Rupert Lee MD
Original Note:
Consultation
-
Date/Time Consultation Requested: 02/14/2025; time unknown
Date/Time Consultation Performed: 02/15/2025; 0730
Requesting Provider: unknown
Performing Provider: Sophie Alaniz PA-C / Dr. Sandeep Marquez
Reason for Consultation: Right periprosthetic hip fracture
Consultation - Orthopedics
History
Ms. Valentine is a 69 year old female with PMH of hypertension, hypercholesterolemia, DM - I, retinopathy, neuropathy, Pedro's disease, anemia and spinal stenosis. She recently underwent a right total hip arthroplasty under the direction of
Rosa, and was discharged to [facility] yesterday. She reports she was sitting in a chair at the rehab when she attempted to stand and grab her purse. It was heavier than she expected which caused her to call. She was unable to get up off the floor. She
was brought to ED via EMS where x-rays revealed a periprosthetic hip fracture. She is resting comfortably in bed this morning, and reports her pain is well controlled with her current pain management regimen. She denies pain elsewhere.
Allergies / Home Medications
Allergy/AdvReac Type Severity Reaction Status Date / Time
codeine Allergy dizziness Verified 02/12/25 09:38
diphenhydramine (From Allergy Hives Verified 02/12/25 09:38
Benadryl)
gabapentin Allergy Itching Verified 02/12/25 09:38
insulin isophane (NPH) (From Allergy welts legs Verified 02/12/25 09:38
Novolin 70/30 U-100 Insulin)
insulin regular (From Allergy welts legs Verified 02/12/25 09:38
Novolin 70/30 U-100 Insulin)
isosorbide Allergy dizziness Verified 02/12/25 09:38
meloxicam Allergy diarrhea Verified 02/12/25 09:38
amlodipine AdvReac leg Verified 02/12/25 09:38
swelling
�Medication �Instructions �Recorded
Beet Root Gummy 500 mg PO DAILY 01/23/25
Held on 02/12/25.
Instructions: Resume on
02/20/25.
Nutrafol Womens 1 dose PO DAILY 01/23/25
Held on 02/12/25.
Instructions: Resume on
02/20/25.
amlodipine 5 mg tablet 5 mg PO DAILY 01/23/25
ascorbic acid (vitamin C) 500 mg 500 mg PO DAILY 01/23/25
tablet (Vitamin C)
cholecalciferol (vitamin D3) 125 125 mcg PO SA 01/23/25
mcg (5,000 unit) tablet (Vitamin
D3)
coenzyme Q10 100 mg capsule 100 mg PO DAILY 01/23/25
(CoQ-10)
Held on 02/12/25.
Instructions: Resume on
02/20/25.
ferrous gluconate 324 mg (38 mg 324 mg PO DAILY 01/23/25
iron) tablet
hydrochlorothiazide 12.5 mg tablet 12.5 mg PO DAILY 01/23/25
insulin lispro 100 unit/mL 0 unit SC Q1H 01/23/25
subcutaneous solution
levothyroxine 75 mcg tablet 75 mcg PO MOTUWETHFR 01/23/25
magnesium citrate 34 mg chewable 70 mg PO DAILY 01/23/25
tablet
pregabalin 100 mg capsule 100 mg PO BID 01/23/25
rosuvastatin 20 mg tablet 20 mg PO DAILY 01/23/25
valacyclovir 500 mg tablet 500 mg PO DAILY 01/23/25
mupirocin 2 % topical ointment 1 applic intranasal BID #1 tube 01/24/25
Saccharomyces boulardii 250 mg 250 mg PO BID #1 cap 02/12/25
capsule (Florastor)
cefadroxil 500 mg capsule 500 mg PO BID infection prevention 02/12/25
#14 caps
docusate sodium 100 mg capsule 100 mg PO BID stool softner #1 cap 02/12/25
(Colace)
famotidine 20 mg tablet 20 mg PO HS GI prophylaxis #30 tabs 02/12/25
magnesium hydroxide 400 mg/5 mL 30 ml PO HS PRN constipation #1 mL 02/12/25
oral suspension (Milk of Magnesia)
ondansetron 4 mg disintegrating 4 mg PO Q6H PRN n/v #20 tabs 02/12/25
tablet
sennosides 8.6 mg tablet (Senokot) 17.2 mg (2 x 8.6 mg) PO BID 02/12/25
laxative #2 tabs
tramadol 50 mg tablet 50 mg PO Q6H PRN 1 tab moderate 02/12/25
pain, 2 if severe #30 tabs
aspirin 81 mg tablet,delayed 81 mg PO DAILY 02/14/25
release
Vital Signs / Lab Results
Temp Pulse Resp BP Pulse Ox
98.0 F 91 18 166/69 95
02/15/25 07:30 02/15/25 08:54 02/15/25 07:30 02/15/25 08:54 02/15/25 07:30
08/22/25 20:51
02/14/25 21:37
XR Right Hip IMPRESSION:
Unchanged alignment of the right total hip arthroplasty with a minimally displaced periprosthetic fracture through the medial proximal femur.
CT Right Hip IMPRESSION:
Right total hip arthroplasty with an oblique periprosthetic fracture through the proximal femur with anteromedial displacement of the fracture fragment. There is associated soft tissue swelling and edema in the lateral soft tissues.
Directed exam of the right lower extremity reveals surgical dressing clean, dry and intact. Expected post-operative edema about the right hip. Mild tenderness about the proximal femur. Thigh soft and compressible. Positive log roll. Calf soft and
nontender. Patient able to wiggle toes, plantar and dorsiflex ankle. NVID.
Assessment / Plan
Right periprosthetic femur fracture
--Unfortunately, Teresa sustained a periprosthetic femur fracture in her fall. I recommend proceeding with open reduction internal fixation of her fracture. The risks, benefits, alternatives, recovery process and potential complications were
discussed in detail. She verbalized understanding and would like to proceed with surgical intervention. We plan for OR tomorrow morning (02/16) under the direction of Dr. Lee. Surgical and blood consents are signed and placed in patient chart.
--NWB to RLE until surgery.
--NPO after mn for OR 02/16.
--Pain control prn. Ice for pain and edema control.
--T+S completed.
--Abx and irrigation ordered to OR.
--Orthopedics will continue to follow along.
--- NOTE | 2025-02-15 10:21 | CM ---
Reviewed the chart notes and spoke with the patient at the bedside. The patient was discharged 02/14 to [facility] after [facility]. Patient resides alone in a first floor condo with one step to enter. The patient has rolling walker, shower chair,
and shower rail. The patient reports no VN in the past. Patient is scheduled for surgery tomorrow for femur repair. CM continues to be available to patient/family and is monitoring medical plan for needs at discharge.
Plan: Discharge plan will be to SNF/rehab once medically stable, bed secured, and auth obtained.
[2025-02-15 11:35] LABS: Glucose - Point of Care 275 mg/dl (70-99)
[2025-02-15] MEDS: PT'S OWN INSULIN PUMP - HumaLOG 1.8 UNIT SC (12:32)
[2025-02-15 15:35] VITALS: BP 119/52
[2025-02-15 16:32] LABS: Glucose - Point of Care 198 mg/dl (70-99)
[2025-02-15] MEDS: PT'S OWN INSULIN PUMP - HumaLOG 0.9 UNIT SC (17:20)
[2025-02-15 21:14] LABS: Glucose - Point of Care 187 mg/dl (70-99)
--- NOTE | 2025-02-15 21:35 | PTCARENOTE ---
Assisted patient to refill insulin pump and change location of canula. New location on L hip
[2025-02-15] MEDS: PT'S OWN INSULIN PUMP - HumaLOG 0.8 UNIT SC (21:37)
[2025-02-15] MEDS: PEPCID 20 MG PO (21:37)
[2025-02-15 23:00] VITALS: BP 130/81
[2025-02-16] VITALS (15 sets, daily range): BP systolic 132–162; BP diastolic 53–76
[2025-02-16] MEDS: ULTRAM 50 MG PO ×2 (05:00→19:08)
[2025-02-16 06:28] LABS: Glucose - Point of Care 171 mg/dl (70-99)
[2025-02-16] MEDS: PT'S OWN INSULIN PUMP - HumaLOG 0.6 UNIT SC (06:31)
[2025-02-16 06:52] LABS: Hematocrit 24.1 % (37.0-47.0); Hemoglobin 8.2 g/dL (12.0-16.0); Mean Corp Hgb Conc. 34.0 g/dL (33.0-37.0); Mean Corpuscular Volume 88.0 fL (81.0-99.0); Platelet Count 174 10^3/uL (130-400); Red Cell Dist. Width 14.1 % (11.5-14.5)
[2025-02-16 07:06] LABS: Blood Urea Nitrogen 22 mg/dl (7-17); Calcium 8.5 mg/dl (8.4-10.2); Carbon Dioxide 28 mmol/L (22-30); Chloride 108 mmol/L (98-107); Estimated Creatinine Clearance 71 ml/min; Glucose 163 mg/dl (70-99); Potassium 4.4 mmol/L (3.5-5.1); Sodium 139 mmol/L (135-145); eGFR > 60.00
[2025-02-16] MEDS: NORVASC 5 MG PO (07:18)
[2025-02-16] MEDS: LYRICA 100 MG PO ×2 (07:18→20:11)
[2025-02-16] MEDS: FEOSOL 162.5 MG PO (07:18)
[2025-02-16] MEDS: ORETIC 12.5 MG PO (07:18)
[2025-02-16] MEDS: MAGNESIUM OXIDE 400 MG PO (07:18)
[2025-02-16] MEDS: ASPIR LOW (ENTERIC COATED) 81 MG PO (07:18)
[2025-02-16] MEDS: VALTREX 500 MG PO (07:19)
[2025-02-16] MEDS: CRESTOR 20 MG PO (07:19)
--- NOTE | 2025-02-16 09:43 | W.PN.HOSP.TC ---
Today's Communication/Plan
-
CBC in AM
Holding insulin pump during surgery,resume afterward
Assessment / Plan
Assessment / Plan
Physical Exam
General: Well Developed, Well Nourished, No Apparent Distress and Conversant
HEENT: Normocephalic, Moist mucous membranes and Atraumatic
Respiratory: Clear
Cardiac: S1/S2 and Regular Rhythm; No Murmur, Rub or Gallop
Breast: Deferred by me
GI: Soft, Non Tender, Non Distended and Normal Bowel Sounds;
Genito-urinary: No [place]
Musculoskeletal: No Clubbing, No Cyanosis and Other (externally rotated right leg)
Skin: Warm and IV/Catheter Site
Neuro: Awake, AO x 3 and Nonfocal/grossly intact
Psych: Calm
A/p:
#shazia-prosthetic femoral shaft fracture
Pelvis CT: Right total hip arthroplasty with an oblique periprosthetic fracture through the proximal femur with anteromedial displacement of the fracture fragment. There is associated soft tissue swelling and
edema in the lateral soft tissues.
Right Femur x-ray: Redemonstration of the periprosthetic possible femur fracture. There is no evidence of distal femoral fracture.
Head TC: No acute intracranial abnormality noted.
Right femur CT: Unchanged alignment of the right total hip arthroplasty with a minimally displaced periprosthetic fracture through the medial proximal femur.
- Admit to med/surg
- Consulted Ortho
- pain regimen
- plan for OR Monday
- continue cefadroxil
# Pre op evaluation
Patient denies chest pain or shortness of breath. Denies anginal symptoms. Had recent surgery without complications. No prohibitive factors for surgery, will get preop EKG.
# Acute blood loss anemia
recheck H&H, might need blood transfusion if HGB less than 8
#hypertension
- continue amlodipine and hydrochlorothiazide
#hypercholesterolemia
- continue rosuvastatin
#DM - I
She she wanted to keep insulin pump going during surgery. Concern regarding prolonged surgery and risk of hypoglycemia. I discussed with the patient, hyperglycemia could be treated with insulin but risk of hypoglycemia would be higher and more
disabling. She agreed to turn off the pump during surgery and then we will follow-up with postop management resume the pump.
#herpes simplex virus
- continue valacyclovir
#Pedro's disease
s/p partial thyroidectomy
- continue levothyroxine
#neuropathy
- continue pregabalin
#retinopathy
#anemia
#spinal stenosis
Code status: full code
DVT prophylaxis: heparin sq
Total time spent to see the patient, examine the patient, review data and lab results, discuss treatment plan with patient, nursing staff around 55 minutes
Anticipated Discharge: > 48 hours
Subjective/Interval History
-
Date of Service: February 16, 2025
No chest pain
No sob
Objective Data
-
Labs:
Laboratory Results
02/16/25
06:33
WBC 4.3 L
Hgb 8.2 L D
Hct 24.1 L
Plt Count 174
Sodium 139
Potassium 4.4
Chloride 108 H
Carbon Dioxide 28
BUN 22 H
Creatinine 0.7
Glucose 163 H
Calcium 8.5
Vital Signs:
Vital Signs
Temp Pulse Resp BP Pulse Ox
97.7 F 74 16 159/62 99
02/16/25 07:16 02/16/25 07:18 02/16/25 07:16 02/16/25 07:18 02/16/25 07:16
I&O
02/15/25 02/16/25 02/17/25
06:59 06:59 06:59
Intake Total 120 / 120 1200 / 1200
Output Total 1200 / 1200
Balance -1080 / -1080 1200 / 1200
--- NOTE | 2025-02-16 11:16 | OR.RPT ---
Addendum entered and electronically signed by Eben Lee MD 02/16/25 11:35:
The patient recieved 1U PRBC's at the beginning of the case.
Original Note:
Operative Report
Operative Report
Orthopaedic Surgery Operative Note
DATE OF OPERATION: 02/16/2025
PREOPERATIVE DIAGNOSES: Right periprosthetic proximal femur fracture
POSTOPERATIVE DIAGNOSES: Same
OPERATION PERFORMED:
Revision right total hip arthroplasty, single component, with femoral component revision.
Proximal femur fracture ORIF
SURGEON: Eben Lee MD
CHIEF GROWTH OFFICER: Sophie Alaniz PA-C who helped with patient and limb positioning and retraction
ANESTHESIA: General
COMPLICATIONS: None.
ESTIMATED BLOOD LOSS: 250 mL.
DRAINS: None
SPECIMEN: None
FINDINGS: Loose femoral component, displaced fracture medially. Intact lateral femur and trochanter.
IMPLANTS:
Sumit Talbert Cone femoral stem, 14mm x 125mm
Sumit cerclage cables x5
Biolox delta ceramic head, 32mm +7mm
INDICATIONS: The patient presented to the emergency department after sustaining a fall out at alf facility. She had acute onset pain and inability to weight bear. She had undergone R JORGE with me two days prior 02/12/2025. X-ray showed
signs of a periprosthetic proximal femur fracture with stem subsidence. We reviewed the natural history of this problem, as well as the risks, benefits, and alternatives of various treatment options. We discussed nonoperative treatment options as
well as operative treatment. Shared decision with patient and her family was to proceed with surgical treatment due the high morbidity of nonoperative treatment and to improve her pain and function. The patient understood the risks which included,
but were not limited to, bleeding, infection, failure to relieve pain, more pain than preop, damage to blood vessels and nerves, need for reoperation, mechanical failure of the implants, wound healing problems, stiffness, instability, blood clot,
pulmonary embolism, myocardial infarction, pneumonia, arrhythmia, CVA, and . The patient accepted these risks and wished to proceed. All questions were answered among patient and her son and daughter, and informed consent was obtained.
Talbert cone stem was utilized. Her index JORGE was noted her diaphysis to be quite narrow. Templating indicated the SL Talbert and Tacos may be too wide and long distally. Templating the Cone showed good diaphyseal fixation distal to the fracture site
and more appropriate size matching to her anatomy.
PROCEDURE IN DETAIL: The patient was identified in the preoperative holding area. The right hip was identified as the operative site. The patient was taken in the operating room and transferred to the operative table. General anesthesia was
performed. IV antibiotics and tranexamic acid were administered. The patient was placed in the lateral position with Stulberg hip positioners. Axillary roll was placed. The down leg was well padded. All bony prominences were well padded. The
operative limb was prepped and draped in the usual sterile fashion.
Time out was performed. A posterolateral approach to the hip was used. Dissection was taken down sharply through subcutaneous tissues. Due to recent surgery, the dissection was mostly blunt. The sutures were removed. The posterior capsule flap was
intact and taken down. Meticulous hemostasis was achieved throughout the case with electrocautery. We split the fascia jereim in line with skin incision. I split the gluteus yogesh bluntly. We cauterized all crossing vessels as we split it. I
palpated the sciatic nerve and made sure it was well posterior in the operative field. It was protected throughout the case. Dissection was extended distally to enable exposure of the fracture. The acetabulum was inspected and noted to be intact
without damage.
The vastus lateralis was elevated off the posterior intermuscular septum with a Aguayo. No perforating vessels were encountered. The fracture was exposed distally and a single cerclage cable was placed distal to the fracture site. All cables were
carefully passed posterior to anterior right on the bone with care not to entrap neurovascular structures. The fracture was opened to debride fracture hematoma. The femoral canal was quite narrow but was sequentially reamed on power up to a 14mm to
accept the Talbert cone stem. A trial stem was placed and had excellent axial and rotational stability distal to the fracture.
The leg was placed in a neutral position and the medial fracture fragment was mobilized. It was reduced distally and rotated anterior to posterior into anatomic alignment. Cerclage cables were placed sequentially from distal to proximal. These
were tightened sequentially. IntraOp fluoroscopy confirmed appropriate fracture reduction with good distal fixation of the femoral stem as well as appropriate length and offset. A trial ball head was placed and the hip was taken through range of
motion. The hip was stable in extension without impingement and was stable in the position of sleep and with flexion and internal rotation. The final implants were opened. The trial components were removed. The final stem was impacted into place
with excellent axial and rotational stability. Version was set to 15 degrees with reference to shane aspira. The circlage cables were sequentially tightened for a final time and locking screw was engaged. The cables were cut flush to the metal
locking clamp. The final ball head was impacted onto a clean dry trunion and the hip was reduced. It was again taken through range of motion and leg length and offset and stability were excellent without impingement.
A dilute betadine soak was performed for approximately 3 minutes, and then the hip was copiously irrigated with 3L of sterile saline. I repaired the capsule and posterior soft tissue with #2 Ethibond to the prior drill holes in the greater
trochanter. Local anesthetic was injected. The vastus lateralis fascia and part of gluteus yogesh tendon was repaired with combination of figure-of-8 0 Vicryl. The fascia jeremi was closed with #1 PDS in running fashion. The subcutaneous tissues were
closed with 2-0 PDS in running fashion. The skin was reapproximated with 3-0 Monocryl subcuticular suture. I placed a Prineo dressing followed by a Mepilex Ag dressing. The patient awoke from anesthesia without difficulty. Sponge and instrument
counts were correct x2 at the end of the case.
I was present and participated in the entire procedure. I checked leg length at the ankles after transfer on the bed which was equal. The patient was sent to the recovery room in stable condition.
Plan:
Touch down weight bearing x6 weeks RLE with walker
Ancef x24 hours; 7 days PO cefadroxil
ASA 325 daily x6 weeks for DVT prophylaxis
Follow up 2 weeks - recommend xrays at 2 weeks
Rupert Lee MD
[2025-02-16] MEDS: HEPARIN SC (11:24)
[2025-02-16 11:34] LABS: Glucose - Point of Care 265 mg/dl (70-99)
[2025-02-16] MEDS: NOVOLOG vial 4 UNITS SC (11:59)
[2025-02-16] MEDS: PT'S OWN INSULIN PUMP - HumaLOG SC (14:11)
[2025-02-16] MEDS: ZOFRAN 4 MG IV (15:25)
[2025-02-16] MEDS: HEPARIN 5000 UNITS SC ×2 (15:36→23:20)
[2025-02-16 15:37] LABS: Glucose - Point of Care 250 mg/dl (70-99)
[2025-02-16] MEDS: PT'S OWN INSULIN PUMP - HumaLOG 1.6 UNIT SC (15:38)
[2025-02-16] MEDS: ANCEF 5 IV ×2 (15:44→23:20)
[2025-02-16] MEDS: ASPIRIN 325 MG PO (17:17)
[2025-02-16] MEDS: BACTROBAN 2% OINTMENT 1 APPLIC NASAL (20:10)
[2025-02-16] MEDS: COLACE 100 MG PO (20:11)
[2025-02-16] MEDS: PT'S OWN INSULIN PUMP - HumaLOG 0.8 UNIT SC (21:35)
[2025-02-16 21:37] LABS: Glucose - Point of Care 190 mg/dl (70-99)
[2025-02-16] MEDS: PEPCID 20 MG PO (22:30)
[2025-02-16] MEDS: TYLENOL 650 MG PO (23:34)
[2025-02-17] VITALS (7 sets, daily range): BP systolic 101–164; BP diastolic 49–77; PULSE 98–100; O2SAT 96
[2025-02-17] MEDS: SYNTHROID 75 MCG PO (05:33)
[2025-02-17 07:18] LABS: Hematocrit 27.0 % (37.0-47.0); Hemoglobin 9.1 g/dL (12.0-16.0); Mean Corp Hgb Conc. 33.7 g/dL (33.0-37.0); Mean Corpuscular Volume 89.1 fL (81.0-99.0); Platelet Count 170 10^3/uL (130-400); Red Cell Dist. Width 13.9 % (11.5-14.5)
[2025-02-17 07:26] LABS: Glucose - Point of Care 165 mg/dl (70-99)
[2025-02-17 08:16] LABS: ALT (SGPT) 17 U/L (0-35); AST (SGOT) 45 U/L (14-36); Albumin 3.1 g/dl (3.5-5.0); Alkaline Phosphatase 60 U/L (38-126); Blood Urea Nitrogen 19 mg/dl (7-17); Calcium 8.5 mg/dl (8.4-10.2); Carbon Dioxide 30 mmol/L (22-30); Chloride 105 mmol/L (98-107); Estimated Creatinine Clearance 71 ml/min; Glucose 145 mg/dl (70-99); Potassium 4.3 mmol/L (3.5-5.1); Sodium 138 mmol/L (135-145); Total Protein 5.5 g/dl (6.3-8.2); eGFR > 60.00
--- NOTE | 2025-02-17 08:28 | W.PN.ORTHO ---
Today's Communication / Plan
-
69 yo F POD1 revision JORGE with ORIF of periprosthetic femur fracture under the direction of Dr. Lee
--Touch-down weight bearing to right lower extremity. THPs x6-8 weeks. We appreciate the assistance of PT/OT.
--Recommend ASA 325 mg daily x4 weeks for DVT ppx.
--Pain control prn. Ice and elevation for edema control.
--Hgb 9.1 this AM. Continue to monitor.
--Maintain surgical dressing until 2 weeks post-op visit.
--Case management consult for dc planning. Recommend follow up in the office at 2 weeks post-op. Patient should present from SNF with new x-rays.
--Orthopedics will continue to follow along.
Assessment
.
Distal Motor Intact: Yes
Dressing:
Clean, dry and intact.
Plan
.
Surgery / Date: Revision JORGE, ORIF periprosthetic femur fracture
DVT Prophylaxis: Aspirin
Activity:
Out of bed.
PT/OT
Subjective
.
.:
Ms. Valentine is POD1 following her right hip revision total hip arthroplasty with ORIF of periprosthetic femur fracture performed by Dr. Lee. She is resting comfortably in bed this morning. She endorses some aching pain about the hip, but states
this is well controlled at present. She is apprehensive about getting up and out of bed.
Vital Signs and Labs
.
Vital Signs and Labs:
Lab Results
02/17/25 06:46
02/17/25 06:47
Temp Pulse Resp BP Pulse Ox
98.4 F 88 20 154/54 96
02/17/25 07:25 02/17/25 07:25 02/17/25 07:25 02/17/25 07:25 02/17/25 07:25
PT 12.0 Sec (11.4-14.6) 02/14/25 20:51
INR 0.86 02/14/25 20:51
Non-invasive Hgb result: 9
Physical Exam
-
Directed exam of the right lower extremity reveals surgical dressing clean, dry and intact. Expected post-operative edema about the right hip. Thigh soft and compressible. Calf soft and nontender. Patient able to wiggle toes, plantar and dorsiflex
ankle. Neurovascularly intact distally.
[2025-02-17] MEDS: PT'S OWN INSULIN PUMP - HumaLOG 0.5 UNIT SC (08:29)
[2025-02-17] MEDS: LYRICA 100 MG PO ×2 (08:33→20:16)
[2025-02-17] MEDS: ORETIC 12.5 MG PO (08:34)
[2025-02-17] MEDS: KEFLEX 500 MG PO ×3 (08:34→23:25)
[2025-02-17] MEDS: MAGNESIUM OXIDE 400 MG PO (08:34)
[2025-02-17] MEDS: FEOSOL 162.5 MG PO (08:34)
[2025-02-17] MEDS: ASPIRIN 325 MG PO (08:34)
[2025-02-17] MEDS: CRESTOR 20 MG PO (08:35)
[2025-02-17] MEDS: VALTREX 500 MG PO (08:35)
[2025-02-17] MEDS: HEPARIN 5000 UNITS SC ×3 (08:35→23:25)
[2025-02-17] MEDS: BACTROBAN 2% OINTMENT 1 APPLIC NASAL ×2 (08:35→20:15)
[2025-02-17] MEDS: COLACE 100 MG PO ×2 (08:35→20:16)
[2025-02-17] MEDS: NORVASC 5 MG PO (08:35)
[2025-02-17] MEDS: ULTRAM 50 MG PO ×2 (09:18→20:16)
--- NOTE | 2025-02-17 10:49 | CM ---
Addendum entered by Mercedes Hartley 02/17/25 16:30:
Met with patient and her sister, requested referrals to [facility]
she will need auth once bed secured
PLAN: SNF, pending bed availability, will need auth
Original Note:
Patient seen at bedside
PT/OT eval
rec SNF
Patient does not wish to return to [facility], has SNF list & will review with her sister & get back to with choices for referrals to [facility].
Will need to obtain insurance auth
PLAN: SNF, pending bed availability when stable, will need ins auth
[2025-02-17] MEDS: PT'S OWN INSULIN PUMP - HumaLOG 1.8 UNIT SC (11:58)
[2025-02-17 12:08] LABS: Glucose - Point of Care 169 mg/dl (70-99)
[2025-02-17] MEDS: PT'S OWN INSULIN PUMP - HumaLOG SC (12:37)
--- NOTE | 2025-02-17 13:37 | W.PN.HOSP.TC ---
Today's Communication/Plan
-
dc ready, cm aware
monitor hgb
Assessment / Plan
Assessment / Plan
Physical Exam
General: Well Developed, Well Nourished, No Apparent Distress and Conversant
HEENT: Normocephalic, Moist mucous membranes and Atraumatic
Respiratory: Clear
Cardiac: S1/S2 and Regular Rhythm; No Murmur, Rub or Gallop
Breast: Deferred by me
GI: Soft, Non Tender, Non Distended and Normal Bowel Sounds;
Genito-urinary: No [place]
Musculoskeletal: No Clubbing, No Cyanosis; right lower extremity reveals surgical dressing clean, dry and intact. Expected post-operative edema about the right hip.
Skin: Warm and IV/Catheter Site
Neuro: Awake, AO x 3 and Nonfocal/grossly intact
Psych: Calm
A/p:
#shazia-prosthetic femoral shaft fracture
Pelvis CT: Right total hip arthroplasty with an oblique periprosthetic fracture through the proximal femur with anteromedial displacement of the fracture fragment. There is associated soft tissue swelling and
edema in the lateral soft tissues.
Right Femur x-ray: Redemonstration of the periprosthetic possible femur fracture. There is no evidence of distal femoral fracture.
Head TC: No acute intracranial abnormality noted.
Right femur CT: Unchanged alignment of the right total hip arthroplasty with a minimally displaced periprosthetic fracture through the medial proximal femur.
- POD1 revision JORGE with ORIF of periprosthetic femur fracture
---Touch-down weight bearing to right lower extremity. THPs x6-8 weeks. We appreciate the assistance of PT/OT.
--Recommend ASA 325 mg daily x4 weeks for DVT ppx.
--Pain control prn. Ice and elevation for edema control.
--Maintain surgical dressing until 2 weeks post-op visit.
-monitor hgb
#anemia, chronic
-monitor hgb
#hypertension
- continue amlodipine and hydrochlorothiazide
#hypercholesterolemia
- continue rosuvastatin
#DM - I
cont insulin pump
#herpes simplex virus
- continue valacyclovir
#Pedro's disease
s/p partial thyroidectomy
- continue levothyroxine
#neuropathy
- continue pregabalin
#retinopathy
#anemia
#spinal stenosis
Code status: full code
DVT prophylaxis: heparin sq
Anticipated Discharge: Within 24 hours
Subjective/Interval History
-
Date of Service: February 17, 2025
No events overnight, tolerated ORIF well
Objective Data
-
Labs:
Laboratory Results
02/17/25 02/17/25
06:46 06:47
WBC 4.8
Hgb 9.1 L
Hct 27.0 L
Plt Count 170
Sodium 138
Potassium 4.3
Chloride 105
Carbon Dioxide 30
BUN 19 H
Creatinine 0.7
Glucose 145 H
Calcium 8.5
Total Bilirubin 0.4
AST 45 H
ALT 17
Alkaline Phosphatase 60
Vital Signs:
Vital Signs
Temp Pulse Resp BP Pulse Ox
98.4 F 88 20 154/54 96
02/17/25 07:25 02/17/25 07:25 02/17/25 07:25 02/17/25 07:25 02/17/25 07:25
I&O
02/16/25 02/17/25 02/18/25
06:59 06:59 06:59
Intake Total 1200 / 1200 780 / 780
Output Total 600 / 600
Balance 1200 / 1200 180 / 180
Review of Systems
-
History Source: Patient
All other systems: Not reviewed unless documented
Data Reviewed
-
Diagnostic Radiology: Report Reviewed by me
CT Scan: Report Reviewed by me
Labs: Labs Reviewed by me
--- NOTE | 2025-02-17 14:00 | PN.DE.MGMTRT ---
Insulin Management
- -
02/17/2025 Diabetes Management Consult
Patient admitted 02/14 s/p fall s/p r hip replacement with new fracture. Prior to admission patient was using medtronic insulin pump with lispro insulin and quick set. A1C from 01/24 7.7%, cr .7, eGFR > 60.
Patient is awake alert and oriented able to discuss diabetes care. States she has had diabetes 62 years and follows with endocrine. She does not use a sensor but does check fingerstick glucose frequently. Pump settings as follows:
Basal Carb Ratio Correction Target
12am .4 20 75 125
6am .525 20 75
7am .075 20 75
8am 1.2 20 75
12pm 1.10 20 75
4pm 1.2 20 75
7:30pm .9 20 75
11:30pm .425 20 75
24 hour basal total 20.2 units
Will make no change to pump settings, patient is capable of bolusing for meals and corrections.
Discussed with nurse.
Will follow
Diabetes History
- -
Type of Diabetes: 1
Pre-Admission Diabetes Regimen
02/17/25
06:47
Creatinine 0.7
Insulin Pump Settings
IP Diabetes Regimen
02/16/25 02/16/25 02/17/25
15:35 21:35 06:47
Glucose 145 H
POC Glucose 250 H 190 H
02/17/25 02/17/25
07:25 12:07
Glucose
POC Glucose 165 H 169 H
Patient Education
[2025-02-17 16:46] LABS: Glucose - Point of Care 399 mg/dl (70-99)
[2025-02-17] MEDS: PT'S OWN INSULIN PUMP - HumaLOG 3.8 UNIT SC ×2 (16:49→21:30)
[2025-02-17 21:18] LABS: Glucose - Point of Care 397 mg/dl (70-99)
[2025-02-17] MEDS: PEPCID 20 MG PO (21:29)
[2025-02-18] MEDS: SYNTHROID 75 MCG PO (05:53)
[2025-02-18 07:04] LABS: Glucose - Point of Care 352 mg/dl (70-99)
--- NOTE | 2025-02-18 07:12 | W.PN.ORTHO ---
Today's Communication / Plan
-
--Touch-down weight bearing to right lower extremity. THPs x6-8 weeks. We appreciate the assistance of PT/OT.
--Recommend ASA 325 mg daily x4 weeks for DVT ppx.
--Pain control prn. Ice and elevation for edema control.
--Hgb 10.5 this AM
--Maintain surgical dressing until 2 weeks post-op visit.
--Case management consult for dc planning. Recommend follow up in the office at 2 weeks post-op. Patient should present from SNF with new x-rays.
-- Orthopedically to sign off.
Assessment
.
Distal Motor Intact: Yes
Dressing:
Clean, dry and intact.
Plan
.
Surgery / Date: Revision JORGE, ORIF periprosthetic femur fx Ste[place]
DVT Prophylaxis: Aspirin
Activity:
Out of bed.
PT/OT
Discharge Plan: SNF
Subjective
.
.:
Patient resting comfortably.
Vital Signs and Labs
.
Vital Signs and Labs:
Lab Results
02/17/25 06:46
02/17/25 06:47
Temp Pulse Resp BP Pulse Ox
99.7 F 91 14 135/56 94
02/17/25 23:05 02/17/25 23:05 02/17/25 23:05 02/17/25 23:05 02/18/25 01:44
PT 12.0 Sec (11.4-14.6) 02/14/25 20:51
INR 0.86 02/14/25 20:51
Non-invasive Hgb result: 10.5
[2025-02-18 07:30] VITALS: BP 132/54
[2025-02-18] MEDS: PT'S OWN INSULIN PUMP - HumaLOG 3.3 UNIT SC (09:16)
[2025-02-18] MEDS: VALTREX 500 MG PO (09:19)
[2025-02-18] MEDS: KEFLEX 500 MG PO ×3 (09:19→21:39)
[2025-02-18] MEDS: ASPIRIN 325 MG PO (09:19)
[2025-02-18] MEDS: FEOSOL 162.5 MG PO (09:20)
[2025-02-18] MEDS: MAGNESIUM OXIDE 400 MG PO (09:20)
[2025-02-18] MEDS: ORETIC 12.5 MG PO (09:20)
[2025-02-18] MEDS: CRESTOR 20 MG PO (09:20)
[2025-02-18] MEDS: HEPARIN 5000 UNITS SC ×3 (09:20→23:46)
[2025-02-18] MEDS: COLACE 100 MG PO ×2 (09:20→21:39)
[2025-02-18] MEDS: NORVASC 5 MG PO (09:20)
[2025-02-18] MEDS: LYRICA 100 MG PO ×2 (09:24→21:39)
[2025-02-18 09:30] LABS: Hematocrit 25.2 % (37.0-47.0); Hemoglobin 8.6 g/dL (12.0-16.0); Mean Corp Hgb Conc. 34.1 g/dL (33.0-37.0); Mean Corpuscular Volume 88.7 fL (81.0-99.0); Platelet Count 171 10^3/uL (130-400); Red Cell Dist. Width 13.7 % (11.5-14.5)
--- NOTE | 2025-02-18 11:06 | PN.DE.MGMTRT ---
Insulin Management
- -
02/18/2025 Diabetes Management Consult Follow up
Patient admitted 02/14 s/p fall s/p r hip replacement with new fracture. Prior to admission patient was using medtronic insulin pump with lispro insulin and quick set. A1C from 01/24 7.7%, cr .7, eGFR > 60.
Patient is awake alert and oriented able to discuss diabetes care. States she has had diabetes 62 years and follows with endocrine. She does not use a sensor but does check fingerstick glucose frequently. Pump settings as follows:
Basal Carb Ratio Correction Target
12am .4 20 75 125
6am .525 20 75
7am .075 20 75
8am 1.2 20 75
12pm 1.10 20 75
4pm 1.2 20 75
7:30pm .9 20 75
11:30pm .425 20 75
24 hour basal total 20.2 units
Patient glucose trended up to 399 pre dinner, patient did not take full correction. HS glucose 397, took 3.8 units. Fasting glucose 352. Patient states she did correct this AM. She is due for a set change later today. If glucose does not come
down she will change infusion set pre lunch.
Will make no change to pump settings, patient is capable of bolusing for meals and corrections.
Discussed with nurse. Nurse will let me know pre lunch glucose.
Will follow
Diabetes History
- -
Type of Diabetes: 1
Pre-Admission Diabetes Regimen
Insulin Pump Settings
IP Diabetes Regimen
02/17/25 02/17/25 02/17/25
12:07 16:44 21:17
POC Glucose 169 H 399 H 397 H
02/18/25
07:03
POC Glucose 352 H
Meal type: Dinner
Meal type: Lunch
Meal type: Breakfast
Amount consumed: 65%
Amount consumed: 100%
Amount consumed: 100%
Patient Education
[2025-02-18 12:01] LABS: Glucose - Point of Care 283 mg/dl (70-99)
[2025-02-18] MEDS: PT'S OWN INSULIN PUMP - HumaLOG 2.1 UNIT SC (12:30)
--- NOTE | 2025-02-18 13:28 | W.PN.HOSP.TC ---
Today's Communication/Plan
-
dc ready, cm aware
monitor hgb
Assessment / Plan
Assessment / Plan
Physical Exam
General: Well Developed, Well Nourished, No Apparent Distress and Conversant
HEENT: Normocephalic, Moist mucous membranes and Atraumatic
Respiratory: Clear
Cardiac: S1/S2 and Regular Rhythm; No Murmur, Rub or Gallop
Breast: Deferred by me
GI: Soft, Non Tender, Non Distended and Normal Bowel Sounds;
Genito-urinary: No [place]
Musculoskeletal: No Clubbing, No Cyanosis; right lower extremity reveals surgical dressing clean, dry and intact. Expected post-operative edema about the right hip.
Skin: Warm and IV/Catheter Site
Neuro: Awake, AO x 3 and Nonfocal/grossly intact
Psych: Calm
A/p:
#shazia-prosthetic femoral shaft fracture
Pelvis CT: Right total hip arthroplasty with an oblique periprosthetic fracture through the proximal femur with anteromedial displacement of the fracture fragment. There is associated soft tissue swelling and
edema in the lateral soft tissues.
Right Femur x-ray: Redemonstration of the periprosthetic possible femur fracture. There is no evidence of distal femoral fracture.
Head TC: No acute intracranial abnormality noted.
Right femur CT: Unchanged alignment of the right total hip arthroplasty with a minimally displaced periprosthetic fracture through the medial proximal femur.
- POD2 revision JORGE with ORIF of periprosthetic femur fracture
---Touch-down weight bearing to right lower extremity. THPs x6-8 weeks.
-- PT/OT.
--Recommend ASA 325 mg daily x4 weeks for DVT ppx.
--Pain control prn. Ice and elevation for edema control.
--Maintain surgical dressing until 2 weeks post-op visit.
-monitor hgb
#anemia, chronic
-monitor hgb
#hypertension
- continue amlodipine and hydrochlorothiazide
#hypercholesterolemia
- continue rosuvastatin
#DM - I
cont insulin pump
#herpes simplex virus
- continue valacyclovir
#Pedro's disease
s/p partial thyroidectomy
- continue levothyroxine
#neuropathy
- continue pregabalin
#retinopathy
#anemia
#spinal stenosis
Code status: full code
DVT prophylaxis: heparin sq
Anticipated Discharge: Within 24 hours
Subjective/Interval History
-
Date of Service: February 18, 2025
No acute events overnight
Objective Data
-
Labs:
Laboratory Results
02/18/25
08:59
WBC 4.5 L
Hgb 8.6 L
Hct 25.2 L
Plt Count 171
Vital Signs:
Vital Signs
Temp Pulse Resp BP Pulse Ox
98.7 F 81 18 132/54 98
02/18/25 07:30 02/18/25 09:20 02/18/25 07:30 02/18/25 09:20 02/18/25 07:30
I&O
02/17/25 02/18/25 02/19/25
06:59 06:59 06:59
Intake Total 780 / 780 1200 / 1200
Output Total 600 / 600
Balance 180 / 180 1200 / 1200
Review of Systems
-
History Source: Patient
All other systems: Not reviewed unless documented
Data Reviewed
-
Diagnostic Radiology: Report Reviewed by me
CT Scan: Report Reviewed by me
Labs: Labs Reviewed by me
--- NOTE | 2025-02-18 14:22 | CM ---
CM following re: discharge planning.
Reviewed pt's chart, met with pt and pt's sister Nya at bedside.
According to MD pt is medically stable to be discharged today. Both pt and her sister are aware, expressed their agreement.
IMM reviewed, placed on chart, pt has a copy.
PT and OT continue recommending SNF level of care. both pt and her sister are aware that [facility] offered a bed and [facility] has no bed available. Both pt and her sister agree with [facility].
CM was account resolution analyst with [facility] SNF liaison to confirm a bed availability and it was just confirmed.
CM initiated an auth for SNF level of care at [facility] with [facility], spoke to parts representative Alison, pending auth is : [id number]. Requested pt's clinical faxed to [facility] at [phone].
Awaiting for an auth.
D/C plan: [facility].
CM will follow to assist pt with discharge to [facility].
[2025-02-18] MEDS: TYLENOL 650 MG PO (14:49)
[2025-02-18] MEDS: TORADOL 10 MG IV (14:49)
[2025-02-18] MEDS: ROXICODONE 5 MG PO (14:56)
[2025-02-18 15:30] VITALS: BP 104/43
[2025-02-18 15:58] VITALS: BP 133/56; BP 160/76; PULSE 83; PULSE 92; O2SAT 95
[2025-02-18 16:31] VITALS: BP 133/56; PULSE 85; O2SAT 95
[2025-02-18] MEDS: PT'S OWN INSULIN PUMP - HumaLOG 0.2 UNIT SC (17:43)
[2025-02-18 17:44] LABS: Glucose - Point of Care 140 mg/dl (70-99)
[2025-02-18 21:17] LABS: Glucose - Point of Care 180 mg/dl (70-99)
--- NOTE | 2025-02-18 21:30 | PTCARENOTE ---
pt has their own insulin pump that they manage independently; pt reported that they were due for a routine site change; pt observed changing insulin pump infusion site at bedside. New infusion site placed on left upper thigh, old site removed. Skin
clean, dry & intact. Care ongoing.
[2025-02-18] MEDS: PEPCID 20 MG PO (21:39)
[2025-02-18] MEDS: PT'S OWN INSULIN PUMP - HumaLOG 0.8 UNIT SC (21:46)
[2025-02-18 23:10] VITALS: BP 118/56
[2025-02-19] MEDS: SYNTHROID 75 MCG PO (06:08)
[2025-02-19 07:30] VITALS: BP 153/63
[2025-02-19 07:34] LABS: Hematocrit 25.5 % (37.0-47.0); Hemoglobin 8.8 g/dL (12.0-16.0); Mean Corp Hgb Conc. 34.5 g/dL (33.0-37.0); Mean Corpuscular Volume 86.7 fL (81.0-99.0); Platelet Count 177 10^3/uL (130-400); Red Cell Dist. Width 13.4 % (11.5-14.5)
[2025-02-19 07:41] LABS: Glucose - Point of Care 206 mg/dl (70-99)
[2025-02-19] MEDS: PT'S OWN INSULIN PUMP - HumaLOG 1.8 UNIT SC ×2 (07:45→11:50)
[2025-02-19] MEDS: ASPIRIN 325 MG PO (08:46)
[2025-02-19] MEDS: COLACE 100 MG PO (08:47)
[2025-02-19] MEDS: CRESTOR 20 MG PO (08:47)
[2025-02-19] MEDS: LYRICA 100 MG PO (08:48)
[2025-02-19] MEDS: KEFLEX 500 MG PO (08:48)
[2025-02-19] MEDS: MAGNESIUM OXIDE 400 MG PO (08:49)
[2025-02-19] MEDS: NORVASC 5 MG PO (08:49)
[2025-02-19] MEDS: ORETIC 12.5 MG PO (08:50)
[2025-02-19] MEDS: VALTREX 500 MG PO (08:51)
[2025-02-19] MEDS: HEPARIN 5000 UNITS SC (08:52)
[2025-02-19] MEDS: FEOSOL 162.5 MG PO (09:21)
--- NOTE | 2025-02-19 10:22 | CM ---
Addendum entered by Isaías Caballero 02/19/25 13:32:
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
Original Note:
CM following re: discharge planning.
Reviewed pt's chart , met with pt.
According to MD pt is medically stable to be discharged today. pt is aware, expressed her agreement. IMM reviewed yesterday.
CM received a phone call from [employer]eting representative Walt and she confirmed that pt is approved for SNF level of care at [facility] for 3 initial days from today 02/19/25 till 02/21/25 with LCD and NRD 02/21/25. Auth:
[id number]. reviewer: Yaniv Carreon [phone].
Auth information forwarded to [facility] liaison and she confirmed that pt is accepted for admission today.
[facility] to arrange ambulance transport [facility]. [facility] completed and left with [facility] nursing report: [phone]
Discharge instructions fax: [phone]
D/C plan: [facility]
[2025-02-19] MEDS: ROXICODONE 2.5 MG PO (10:41)
[2025-02-19 10:58] VITALS: BP 145/64; BP 149/71; BP 152/61; PULSE 93; PULSE 95; PULSE 98; O2SAT 96
--- NOTE | 2025-02-19 11:02 | PN.DE.MGMTRT ---
Insulin Management
- -
02/19/2025 Diabetes Management Consult Follow up
Patient admitted 02/14 s/p fall s/p r hip replacement with new fracture. Prior to admission patient was using medtronic insulin pump with lispro insulin and quick set. A1C from 01/24 7.7%, cr .7, eGFR > 60.
Patient is awake alert and oriented able to discuss diabetes care. States she has had diabetes 62 years and follows with endocrine. She does not use a sensor but does check fingerstick glucose frequently. Pump settings as follows:
Basal Carb Ratio Correction Target
12am .4 20 75 125
6am .525 20 75
7am .075 20 75
8am 1.2 20 75
12pm 1.10 20 75
4pm 1.2 20 75
7:30pm .9 20 75
11:30pm .425 20 75
24 hour basal total 20.2 units
Patient glucose improved after set change 140 pre dinner and 180 @ HS.
Will make no change to pump settings, patient is capable of bolusing for meals and corrections.
Patient for possible discharge to SNF today.
Discussed with nurse.
Will follow
Diabetes History
- -
Type of Diabetes: 1
Pre-Admission Diabetes Regimen
Insulin Pump Settings
IP Diabetes Regimen
02/18/25 02/18/25 02/18/25
12:00 17:43 21:16
POC Glucose 283 H 140 H 180 H
02/19/25
07:39
POC Glucose 206 H
Meal type: Breakfast
Meal type: Lunch
Meal type: Breakfast
Amount consumed: 100%
Amount consumed: 75%
Amount consumed: 100%
Patient Education
[2025-02-19 11:45] LABS: Glucose - Point of Care 269 mg/dl (70-99)
--- NOTE | 2025-02-19 12:03 | W.PN.HOSP.TC ---
Addendum entered and electronically signed by Joseph Avitia MD 02/20/25 17:26:
[id number]
Original Note:
Today's Communication/Plan
-
---Touch-down weight bearing to right lower extremity. THPs x6-8 weeks.
--Recommend ASA 325 mg daily x4 weeks for DVT ppx.
--Pain control prn. Ice and elevation for edema control.
--Maintain surgical dressing until 2 weeks post-op visit. Patient should present from SNF with new x-rays.
-monitor hgb
F/u PCP and Ortho outpatient
Assessment / Plan
Assessment / Plan
Physical Exam
General: Well Developed, Well Nourished, No Apparent Distress and Conversant
HEENT: Normocephalic, Moist mucous membranes and Atraumatic
Respiratory: Clear
Cardiac: S1/S2 and Regular Rhythm; No Murmur, Rub or Gallop
Breast: Deferred by me
GI: Soft, Non Tender, Non Distended and Normal Bowel Sounds;
Genito-urinary: No [place]
Musculoskeletal: No Clubbing, No Cyanosis; right lower extremity reveals surgical dressing clean, dry and intact. Expected post-operative edema about the right hip.
Skin: Warm and IV/Catheter Site
Neuro: Awake, AO x 3 and Nonfocal/grossly intact
Psych: Calm
A/p:
#shazia-prosthetic femoral shaft fracture
Pelvis CT: Right total hip arthroplasty with an oblique periprosthetic fracture through the proximal femur with anteromedial displacement of the fracture fragment. There is associated soft tissue swelling and
edema in the lateral soft tissues.
Right Femur x-ray: Redemonstration of the periprosthetic possible femur fracture. There is no evidence of distal femoral fracture.
Head TC: No acute intracranial abnormality noted.
Right femur CT: Unchanged alignment of the right total hip arthroplasty with a minimally displaced periprosthetic fracture through the medial proximal femur.
- POD3 revision JORGE with ORIF of periprosthetic femur fracture
---Touch-down weight bearing to right lower extremity. THPs x6-8 weeks.
-- PT/OT.
--Recommend ASA 325 mg daily x4 weeks for DVT ppx.
--Pain control prn. Ice and elevation for edema control.
--Maintain surgical dressing until 2 weeks post-op visit. Patient should present from SNF with new x-rays.
-monitor hgb
#anemia, chronic
-monitor hgb
#hypertension
- continue amlodipine and hydrochlorothiazide
#hypercholesterolemia
- continue rosuvastatin
#DM - I
cont insulin pump
#herpes simplex virus
- continue valacyclovir
#Pedro's disease
s/p partial thyroidectomy
- continue levothyroxine
#neuropathy
- continue pregabalin
#retinopathy
#anemia
#spinal stenosis
Code status: full code
DVT prophylaxis: heparin sq
More than 30 minutes spent in discharge including
Final examination of the patient
Summarizing hospital stay
Instructions for continuing care to all relevant caregivers
Preparation of discharge records, prescriptions, and referral forms
Total time spent (in minutes):36
Anticipated Discharge: Today
Subjective/Interval History
-
Date of Service: February 19, 2025
No acute events, working with PT
Objective Data
-
Labs:
Laboratory Results
02/19/25
07:10
WBC 4.7 L
Hgb 8.8 L
Hct 25.5 L
Plt Count 177
Vital Signs:
Vital Signs
Temp Pulse Resp BP Pulse Ox
98.6 F 87 18 153/63 94
02/19/25 07:30 02/19/25 08:49 02/19/25 07:30 02/19/25 08:49 02/19/25 07:30
I&O
02/18/25 02/19/25 02/20/25
06:59 06:59 06:59
Intake Total 1200 / 1200 720 / 720 320 / 320
Balance 1200 / 1200 720 / 720 320 / 320
Review of Systems
-
History Source: Patient
All other systems: Not reviewed unless documented
Data Reviewed
-
Diagnostic Radiology: Report Reviewed by me
CT Scan: Report Reviewed by me
Labs: Labs Reviewed by me
--- NOTE | 2025-02-19 12:06 | W.DS.TRANS ---
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
-
Discharge Instructions:
Discharge Diagnosis/Procedures #shazia-prosthetic femoral shaft fracture
Diet Low Fat,Low Cholesterol,Diabetic, Carb
Controlled
Activity As tolerated
Blood Work cbc and bmp in 3-5 days with pcp
Instructions:
Stand-Alone Forms:
Changes to Home Medications: Yes
Discharge Medications:
DC Medications w/original date entered in [employer]
Beet Root Gummy 500 mg PO DAILY Supplement 01/23/25
Nutrafol Womens 1 dose PO DAILY Supplement 01/23/25
amlodipine 5 mg tablet 5 mg PO DAILY Blood Pressure 01/23/25
ascorbic acid (vitamin C) 500 mg tablet (Vitamin C) 500 mg PO DAILY Supplement 01/23/25
cholecalciferol (vitamin D3) 125 mcg (5,000 unit) tablet (Vitamin D3) 125 mcg PO SA Supplement 01/23/25
coenzyme Q10 100 mg capsule (CoQ-10) 100 mg PO DAILY Supplement 01/23/25
ferrous gluconate 324 mg (38 mg iron) tablet 324 mg PO DAILY Supplement 01/23/25
hydrochlorothiazide 12.5 mg tablet 12.5 mg PO DAILY Blood Pressure 01/23/25
insulin lispro 100 unit/mL subcutaneous solution 0 unit SC Q1H Diabetes 01/23/25
levothyroxine 75 mcg tablet 75 mcg PO MOTUWETHFR Thyroid 01/23/25
magnesium citrate 34 mg chewable tablet 70 mg PO DAILY 01/23/25
pregabalin 100 mg capsule 100 mg PO BID Pain 01/23/25
rosuvastatin 20 mg tablet 20 mg PO DAILY High Cholesterol 01/23/25
valacyclovir 500 mg tablet 500 mg PO DAILY Infection 01/23/25
mupirocin 2 % topical ointment 1 applic intranasal BID #1 tube 01/24/25
Saccharomyces boulardii 250 mg capsule (Florastor) 250 mg PO BID #1 cap 02/12/25
cefadroxil 500 mg capsule 500 mg PO BID infection prevention #14 caps 02/12/25
docusate sodium 100 mg capsule (Colace) 100 mg PO BID stool softner #1 cap 02/12/25
famotidine 20 mg tablet 20 mg PO HS GI prophylaxis #30 tabs 02/12/25
magnesium hydroxide 400 mg/5 mL oral suspension (Milk of Magnesia) 30 ml PO HS PRN constipation #1 mL 02/12/25
ondansetron 4 mg disintegrating tablet 4 mg PO Q6H PRN n/v #20 tabs 02/12/25
sennosides 8.6 mg tablet (Senokot) 17.2 mg (2 x 8.6 mg) PO BID laxative #2 tabs 02/12/25
tramadol 50 mg tablet 50 mg PO Q6H PRN 1 tab moderate pain, 2 if severe #30 tabs 02/12/25
aspirin 81 mg tablet,delayed release 81 mg PO DAILY Blood Clot Prevention/Tx 02/14/25
Held on 02/19/25. Instructions: Resume on 03/23/25. hold until 4 weeks of ASA 325mg daily are completed
aspirin 325 mg tablet 325 mg PO DAILY 4 weeks #28 tabs 02/19/25
oxycodone 5 mg tablet 2.5 mg (1/2 x 5 mg) PO Q4HPRN PRN mild pain #10 tabs 02/19/25
oxycodone 5 mg tablet 5 mg PO Q4HPRN PRN moderate pain #10 tabs 02/19/25
Home Medication Changes
aspirin 81 mg tablet,delayed release 81 mg PO DAILY Blood Clot Prevention/Tx 02/14/25
Held on 02/19/25. Instructions: Resume on 03/23/25. hold until 4 weeks of ASA 325mg daily are completed
aspirin 325 mg tablet 325 mg PO DAILY 4 weeks #28 tabs 02/19/25
oxycodone 5 mg tablet 2.5 mg (1/2 x 5 mg) PO Q4HPRN PRN mild pain #10 tabs 02/19/25
oxycodone 5 mg tablet 5 mg PO Q4HPRN PRN moderate pain #10 tabs 02/19/25
Pending Results: No
[2025-02-19 13:06] VITALS: BP 109/44
== END 2025-02-19 14:54 | DRG 467 ==
LOC: 2 SOUTH 23:34
PROVIDERS: Internal Medicine; ADMITTING PHYSICIAN Hospitalist; ATTENDING PHYSICIAN Internal Medicine; CONSULT PHYSICIAN Orthopaedic Surgery; EMERGENCY PHYSICIAN Student in an Organized Health Care Education/Training Program; FAMILY PHYSICIAN Registered Nurse
PROC: 30233N1 Transfusion of Nonautologous Red Blood Cells into Peripheral Vein, Percutaneous Approach (ICD-10-PCS; 2025-02-16)
PROC: 0SPR0JZ Removal of Synthetic Substitute from Right Hip Joint, Femoral Surface, Open Approach (ICD-10-PCS; 2025-02-16)
PROC: 0SRR03Z Replacement of Right Hip Joint, Femoral Surface with Ceramic Synthetic Substitute, Open Approach (ICD-10-PCS; 2025-02-16)
PROC: 0QS606Z Reposition Right Upper Femur with Intramedullary Internal Fixation Device, Open Approach (ICD-10-PCS; 2025-02-16)
DX: S72.001A Fracture of unspecified part of neck of right femur, initial encounter for closed fracture (principal); D62 Acute posthemorrhagic anemia; M97.01XA Periprosthetic fracture around internal prosthetic right hip joint, initial encounter; T84.030A Mechanical loosening of internal right hip prosthetic joint, initial encounter; I10 Essential (primary) hypertension; E78.00 Pure hypercholesterolemia, unspecified; E10.40 Type 1 diabetes mellitus with diabetic neuropathy, unspecified; E10.319 Type 1 diabetes mellitus with unspecified diabetic retinopathy without macular edema; E10.36 Type 1 diabetes mellitus with diabetic cataract; B00.9 Herpesviral infection, unspecified; E06.3 Autoimmune thyroiditis; I27.20 Pulmonary hypertension, unspecified; I25.10 Atherosclerotic heart disease of native coronary artery without angina pectoris; M48.00 Spinal stenosis, site unspecified; W07.XXXA Fall from chair, initial encounter; Y93.89 Activity, other specified; Y92.531 Health care provider office as the place of occurrence of the external cause; Y83.1 Surgical operation with implant of artificial internal device as the cause of abnormal reaction of the patient, or of later complication, without mention of misadventure at the time of the procedure; Z96.41 Presence of insulin pump (external) (internal); Z96.653 Presence of artificial knee joint, bilateral; Z79.4 Long term (current) use of insulin; Z88.6 Allergy status to analgesic agent; Z88.5 Allergy status to narcotic agent; Z88.8 Allergy status to other drugs, medicaments and biological substances; Z79.890 Hormone replacement therapy; Z75.1 Person awaiting admission to adequate facility elsewhere
CPT/HCPCS: 70450; 72192; 73502; 73552; 76000; 80048; 80053; 80076; 82962; 84132; 85025; 85027; 85610; 85730; 86850; 86900; 86901; 86920; 93005; 96374; 97110; 97163; 97167; 97530; 97535; 99285; P9016